=== PATIENT | male | born 1945 | race Caucasian/White ===

== ENCOUNTER → 2016-11-23 08:52 | Outpatient (CLI) | payer MEDICARE, OTHER ==
[2016-01-01 09:27] VITALS: BMI 22.1
[~2016-11-23 08:52] MED LIST: ACETAMINOPHEN500 M1 PO; ASPIRIN81 MG PO; BUPROPION XL300 MG PO; EFFIENT10 MG PO; GLUCOTROL 5 MG T5 MG PO; HYTRIN5 MG PO; LOPRESSOR25 MG PO; NIFEDIPINE ER90 MG PO; PROAIR HFA8.5 GM INH; WELLBUTRIN XL150 M1 PO; XANAX0.25 MG PO; ZESTRIL40 MG PO; ZOCOR20 MG PO; ZOCOR80 MG PO
== END | disposition home or self-care (01) ==
LOC: D.CT 08:52
DX: M54.5 Low back pain (principal)

== ENCOUNTER 2016-12-10 19:22 | Emergency (ER) | payer MEDICARE, OTHER ==
[2016-01-01 09:27] VITALS: BMI 22.1
[2016-12-10 20:01] LABS: BASOPHILS 0.2 % (0.0-2.0); HEMATOCRIT 32.1 % (42.0-54.0); HEMOGLOBIN 10.1 g/dL (13.5-17.5); IMMATURE GRANULOCYTES 0.4 % (0-5); LYMPHOCYTES 10.3 % (15-50); MCH 27.2 pg (26.0-34.0); MCHC 31.5 g/dL (31.0-37.0); MCV 86.3 fL (80.0-100.0); MEAN PLATELET VOLUME 10.4 fL (7.4-10.4); MONOCYTES 7.9 % (2-11); NEUTROPHILS 80.2 % (40-80); PLATELET COUNT 197 10x3/uL (130-400); RBC 3.72 10x6/uL (4.20-6.10); RDW 15.5 % (11.5-14.5)
[2016-12-10 20:12] LABS: ALBUMIN 3.5 g/dL (3.4-5.0); ALKALINE PHOSPHATASE 75 U/L (46-116); ALT (SGPT) 42 U/L (10-68); BILIRUBIN - TOTAL 0.31 mg/dL (0.2-1.3); CALC OSMOLALITY 286 mosm/kg (275-300); CALCIUM 8.5 mg/dL (8.5-10.1); CARBON DIOXIDE 24.7 mmol/L (21.0-32.0); CHLORIDE - SERUM 104 mmol/L (98-107); CREATININE - SERUM 2.1 mg/dL (0.6-1.3); GLUCOSE 149 mg/dL (74-106); POTASSIUM - SERUM 4.1 mmol/L (3.5-5.1); PROTEIN - SERUM 6.8 g/dL (6.4-8.2); SODIUM 140 mmol/L (136-145); UREA NITROGEN 26 mg/dL (7-18); eGFR NON AFRICAN AMERICAN 33 mL/min (90-120)
[2016-12-10 20:24] LABS: CHOL - HDL RATIO 3.6 ratio (2.3-4.9); CHOLESTEROL, TOTAL 107 mg/dL (0-200); CKMB 0.8 U/L (0.0-3.6); CREATINE KINASE 183 UL (21-232); HDL CHOLESTEROL 30 mg/dL (32-96); LDL CHOLESTEROL 37 mg/dL (0-100); LDL-HDL RATIO 1.2 ratio (1.5-3.5); TRIGLYCERIDE 204 mg/dL (30-200); TROPONIN-I < 0.017 ng/mL (0.000-0.060)
== END 2016-12-10 21:42 | disposition home or self-care (01) ==
LOC: D.ER 19:22
PROVIDERS: Emergency Medicine
DX: R07.9 Chest pain, unspecified (principal); I25.10 Atherosclerotic heart disease of native coronary artery without angina pectoris; D64.9 Anemia, unspecified; N28.9 Disorder of kidney and ureter, unspecified; I45.10 Unspecified right bundle-branch block; I44.60 Unspecified fascicular block

== ENCOUNTER → 2017-02-21 08:25 | Outpatient (CLI) | payer MEDICARE, OTHER ==
[2016-01-01 09:27] VITALS: BMI 22.1
[2017-02-21 10:22] LABS: CREATININE - SERUM 1.5 mg/dL (0.6-1.3)
== END | disposition home or self-care (01) ==
LOC: D.US 08:25
PROVIDERS: Internal Medicine Nephrology
DX: I10 Essential (primary) hypertension (principal); E11.22 Type 2 diabetes mellitus with diabetic chronic kidney disease; D63.1 Anemia in chronic kidney disease; N28.1 Cyst of kidney, acquired

== ENCOUNTER → 2017-11-27 10:10 | Outpatient (CLI) | payer MEDICARE, OTHER ==
[2016-01-01 09:27] VITALS: BMI 22.1
[~2017-11-27 10:10] MED LIST changes: +BAYER CHEWABLE81 MG PO; +BUSPAR10 MG PO; +DESERYL100 MG PO; +FLOMAX0.4 MG PO; +GABAPENTIN100 MG PO; +LANOXIN125 MCG PO; +LIPITOR40 MG PO; +PLAVIX75 MG PO; +REQUIP0.5 MG PO; +ULTRAM50 MG PO
== END | disposition home or self-care (01) ==
LOC: D.CT 10:10
DX: R91.1 Solitary pulmonary nodule (principal)

== ENCOUNTER 2018-01-23 09:16 | Outpatient (CLI) | payer MEDICARE, OTHER ==
[~2018-01-23] VITALS: Ht 182.9 cm; Wt 63.6 kg
--- NOTE | ~2018-01-23 | OP ---
PATIENT NAME: RENARD CABRERA MEDICAL RECORD: [id number] :41 LOCATION:D.CAT ADMISSION DATE: SURGEON: DRISS ANDERSON MD DATE OF OPERATION: 01/23/2018 PROCEDURES: 1. PTCA stent LAD diagonal. 2. Left heart catheterization. 3. Selective coronary angiography. 4. Left ventriculogram. INDICATION: Angina and coronary artery disease. PROCEDURE IN DETAIL: After informed consent was obtained and after a detailed description of the risks, benefits as well as alternative therapies, the patient elected to proceed with angiogram and angioplasty. The right femoral area was prepped and draped in normal sterile fashion. Right femoral artery was cannulated via modified Seldinger technique with placement of 6-Honduran sheath. All catheters exchanged through this sheath. FINDINGS: The left ventriculogram was performed in standard 30-degree KABA view reveals preserved cardiac wall motion, ejection fraction estimated at 55% to 60%. SELECTIVE CORONARY ANGIOGRAPHY: 1. Left main has no significant angiographic disease. 2. Left anterior descending has previously placed stents. These are widely patent with no significant restenosis. However, there is an LAD diagonal that is relatively large, comes off in the stented area of 95% stenosis at the ostium. 3. Left circumflex has moderate irregularities, but no flowing stenosis. 4. The right coronary artery has multiple previously placed stents. These are widely patent with no significant restenosis. No disease else lyles throughout the RCA or its branches. PTCA STENT OF THE LAD DIAGONAL: The stent used was a 2.0 x 12 mm Lorenzo. Result was 0% residual stenosis. OVERALL IMPRESSION: Successful percutaneous transluminal coronary angioplasty stent of the left anterior descending diagonal going from 95% initial stenosis to 0% residual stenosis. TRANSINT:[id number] Voice Confirmation ID: [id number] DOCUMENT ID: [id number] DRISS ANDERSON MD at 1218 CC: [id number] DICTATION DATE: 01/23/18 1241 DEMAND EQUIPMENT REPAIRER: 01/23/18 1438 DEP CLI 01/23/18 [facility] [address] [place] [address]
--- NOTE | ~2018-01-23 | HEMODYNAMI ---
PATIENT:RENARD CABRERA MEDICAL RECORD: [id number] : 41 LOCATION:DVerónicaCAT ADMISSION DATE: 01/23/18 Generatedon:01/23/201812:43 Patient name: RENARD CABRERA Patient #: [id number] SSN: DO B: 1945 Date of study: 01/23/2018 Page: Of Hemodynamic Procedure Report Patient Data Patient Demographics Procedure consent was obtained First Name: RENARD Gender: Male Last Name: RICK : 1945 [facility] Initial: C Age: 72 year(s) Patient #: [id number] Race: Unknown Additional ID: [id number] Contact details [address]: [address] [place] [address] State: [place] City: [place] Zip code: [address] Past Medical History Allergies: No known allergies Admission Admission Data Admission Date: 01/23/2018 Admission Time: 9:16 Admit Source: Other Lab Results Lab Result Date: 01/23/2018 Lab Result Time: 10:30 Biochemistry Name Units Result Min Max BUN mg/dl 18 --(---*)-- 7 18 Creatinine mg/dl 1 --(--*-)-- 0.6 1.3 CBC Name Units Result Min Max Hematocrit % 37.7 *-(----)-- 42 54 Hemoglobin g/dl 12.7 -*(----)-- 13.5 17.5 Procedure Procedure Types Cath Procedure Diagnostic Procedure C [facility] w/Coronaries PCI Procedure Coronary Stent Coronary Stent Initial Procedure Description Procedure Date Procedure Date: 01/23/2018 Procedure Start Time: 12:25 Procedure End Time: 12:42 Procedure Staff Name Function Dawson Vann MD Performing Physician Nathaniel Parker RT Monitor Elizabet Frederick RT Scrub Rakesh Yanes RN Nurse Procedure Data Cath Procedure Fluoroscopy Diagnostic fluoroscopy Total fluoroscopy Time: 3.2 time: 3.2 min min Diagnostic fluoroscopy Total fluoroscopy dose: 321 dose: 321 mGy mGy Contrast Material Contrast Material Type Amount (ml) Isovue 300 80 Entry Location Entry Primary Successful Side Size Upsize Upsize Entry Closure Succes sful Closure Location (Fr) 1 (Fr) 2 (Fr) Remarks Device Remarks Femoral Right 5 Fr 6 Fr Exoseal artery Short Estimated blood loss: 10 ml Diagnostic catheters Device Type Used For End Catheter Placement MULTIPACK Pigtail 5 Fr Procedure catheter MULTIPACK JL 4.0 5Fr Procedure catheter MULTIPACK 3DRC 5Fr Procedure catheter Procedure Complications No complications Procedure Medications Medication Administration Route Dosage 0.9% NaCl I.V. 100 ml/hr Oxygen etCO2 Nasal cannula 2 l/min Heparin Flush Bag added to field 2 bags (1000units/500ml NS) Lidocaine 2% added to field 20 Versed I.V. 1 mg Fentanyl I.V. 50 mcg Versed I.V. 1 mg Fentanyl I.V. 50 mcg Versed I.V. 2 mg Heparin Bolus I.V. 4000 units Hemodynamics Rest HGB: 12.7 (g/dl) Heart Rate: 78 (bpm) Snapshots Pre Cath Intra NCS Post Cath Vital Signs Time Heart Resp SPO2 etCO2 NIBP (mmHg) Rhythm Pain Sedation Rate (ipm) (%) (mmHg) Status Level (bpm) 12:14:13 79 19 98 0 166/73(116) NSR 0 (11) 10(A) , No pain 12:18:52 78 15 99 22.5 135/66(97) NSR 0 (11) 10(A) , No pain 12:23:26 81 18 94 0 130/69(85) NSR 0 (11) 10(A) , No pain 12:28:03 78 20 99 26.3 130/60(89) NSR 0 (11) 10(A) , No pain 12:32:37 86 19 91 0 127/65(82) NSR 0 (11) 9(A) , No pain 12:37:14 82 19 95 3 127/61(88) NSR 0 (11) 9(A) , No pain 12:41:48 90 7 97 24.7 115/61(79) NSR 0 (11) 9(A) , No pain Medications Time Medication Route Dose Verified Delivered Reason Notes Effectiveness by by 12:19:16 0.9% NaCl I.V. 100 Rakesh Rakesh Per physician ml/hr Joaquín Yanes RN RN 12:19:26 Oxygen etCO2 2 Rakesh Rakesh Per physician Nasal l/min Joaquín Yanes cannula RN RN 12:19:38 Heparin Flush added 2 Rakesh Rakesh used for Bag to bags Lortommie Yanes procedure (1000units/500ml field RN RN NS) 12:19:48 Lidocaine 2% added 20ml Rakesh Rakesh for local to vial Lortommie Yanes anesthetic field RN RN 12:24:30 Versed I.V. 1 mg Rakesh Rakesh for sedation Joaquín Yanes RN RN 12:24:41 Fentanyl I.V. 50 Rakesh Rakesh for sedation mcg Joaquín Yanes RN RN 12:26:21 Versed I.V. 1 mg Rakesh Rakesh for sedation Joaquín Yanes RN RN 12:26:26 Fentanyl I.V. 50 Rakesh Rakesh for sedation mcg Joaquín Yanes RN RN 12:30:28 Versed I.V. 2 mg Rakesh Rakesh for sedation Joaquín Yanes RN RN 12:30:39 Heparin Bolus I.V. 4000 Rakesh Rakesh for units Joaquín Yanes anticoagulation RN certification technician Log Time Note 11:57:11 Informed consent obtained and on chart 11:57:25 Admit Source: Other 11:57:39 Diagnostic Cath status Elective 11:57:40 Time tracking: Regular hours (M-F 7:00 - 5:00) 11:57:43 Plan of Care:Hemodynamics will remain stable., Cardiac rhythm will remain stable., Comfort level will be maintained., Respiratory function will remain adequate., Patient/ family verbilizes understanding of procedure., Procedure tolerated without complication., Recovers from procedure without complications.. 11:57:57 H&P Date Dictated: 01/11/2018 Within 30 days and on chart., H&P Addendum completed by physician on day of procedure. (MUST COMPLETE FOR ALL OUTPATIENTS). 12:00:30 Lab Result : BUN 18 mg/dl 12:00:30 Lab Result : Creatinine 1 mg/dl 12:00:30 Lab Result : Hematocrit 37.7 % 12:00:30 Lab Result : Hemoglobin 12.7 g/dl 12:00:41 Lab results completed and on chart. 12:01:46 Rakesh Yanes RN sent for patient. Start room use. 12:08:20 Patient received from Pre/Post Procedure Room to CCL 1 Alert and oriented. Tansferred to table in Supine position. 12:08:21 Warm blankets applied, and zohaib hugger turned on for patient comfort. 12:08:21 Correct patient and procedure confirmed by team. 12:08:22 ECG and BP/O2 sat monitors applied to patient. 12:13:18 Vital chart was started 12:13:19 Full Disclosure recording started 12:19:16 0.9% NaCl 100 ml/hr I.V. was administered by Rakesh Yanes RN; Per physician; 12:19:26 Oxygen 2 l/min etCO2 Nasal cannula was administered by Rakesh Yanes RN; Per physician; 12:19:38 Heparin Flush Bag (1000units/500ml NS) 2 bags added to field was administered by Rakesh Yanes RN; used for procedure; 12:19:48 Lidocaine 2% 20ml vial added to field was administered by Rakesh Yanes RN; for local anesthetic; 12:20:26 SHEATH Prelude 6Fr 0.035 (HBI-3M-47-035) opened to sterile field. 12:20:40 Baseline sample Acquired. 12:20:44 Rhythm: sinus rhythm 12:20:45 Pre-procedure instructions explained to patient. 12:20:45 Pre-op teaching completed and patient verbalized understanding. 12:20:47 Family in waiting room. 12:20:48 Patient NPO since Midnight. 12:20:55 Patient allergic to No known allergies 12:20:57 Is the patient allergic to Iodine/contrast media? No. 12:20:58 Is patient on blood thinner?Yes 12:21:00 ACC The patient was administered the following blood thiners within the last 24 hours: ACCPlavix 12:21:01 Patient diabetic? Yes. 12:21:02 If diabetic: On Metformin? Yes 12:21:05 If on Metformin: Last Dose? 01/21/2018 12:21:08 Previous problem with sedation/anesthesia? No ? 12:21:10 Snore? Yes 12:21:11 Sleep apnea? Yes 12:21:12 Deviated septum? No 12:21:14 Opens mouth fully? Yes 12:21:14 Sticks out tongue? Yes 12:21:41 Airway obstruction? Yes scaring 12:21:44 Dentures? No ? 12:21:48 Pre procedure: right dorsailis pedis pulse 2+ Normal; easily identifiable; not easily obliterated 12:21:52 Patient pain scale 0/10 ?. 12:22:33 IV patent on arrival in left forearm with 0.9% NaCl at [facility]. 12:22:38 Right groin area was prepped with chlora-prep and draped in sterile fashion 12:22:39 Alarms reviewed by R. N. 12:22:40 Sharps counted by scrub and verified by R.N. 12:22:42 Use device set Femoral Dx 12:22:44 ACIST Syringe (07222) opened to sterile field. 12:22:44 Bag Decanter (2002S) opened to sterile field. 12:22:46 ACIST Hand Control (44231) opened to sterile field. 12:22:47 ACIST Manifold (49424) opened to sterile field. 12:22:48 Tegaderm 4 x 4 (1626W) opened to sterile field. 12:22:50 Medline Cath Pack ([id number]) opened to sterile field. 12:22:50 DIAGNOSTIC WIRE .035 260cm J wire (922809) opened to sterile field. 12:22:51 DIAGNOSTIC Multipack 5Fr catheter set (QD7147) opened to sterile field. 12:22:54 SHEATH Prelude 5Fr 0.035 (CSH-3Y-78-035) opened to sterile field. 12:23:01 Physician arrived 12:23:01 --------ALL STOP TIME OUT------ 12:23:01 Final Timeout: patient, procedure, and site verified with staff and physician. All members of the team are in agreement. 12:23:03 Right groin site verified by team. 12:23:05 Physical assessment completed. ASA score P 2 - A patient with mild systemic disease as per Dawson Vann MD. 12:23:09 Sedation plan: IV Moderate Sedation Medication:Versed, Fentanyl 12::57 Zero performed for pressure channel P1 12:24:03 Zero performed for pressure channel P1 12:24:07 Zero performed for pressure channel P1 12:24:13 Zero performed for pressure channel P1 12:24:30 Versed 1 mg I.V. was administered by Rakesh Yanes RN; for sedation; 12:24:41 Fentanyl 50 mcg I.V. was administered by Rakesh Yanes RN; for sedation; 12::42 Procedure started. 12::46 Local anesthetic to right femoral artery with Lidocaine 2% by Dawson Vann MD.INITIAL ACCESS ONLY 12:: A 5 Fr sheath was inserted into the Right Femoral artery 12:: A MULTIPACK Pigtail 5 Fr catheter was advanced over the wire and used for Procedure. 12:: LV gram done using KABA 12:: Versed 1 mg I.V. was administered by Rakesh Yanes RN; for sedation; Injector settings: Ml/sec: 10, Volume: 20, 12:: Fentanyl 50 mcg I.V. was administered by Rakesh Yanes RN; for sedation; 12:: EF : 50 % 12:: Catheter exchanged over wire. 12:: A MULTIPACK JL 4.0 5Fr catheter was advanced over the wire and used for Procedure. 12::29 LCA angiography performed. 12:: Catheter exchanged over wire. 12:: A MULTIPACK 3DRC 5Fr catheter was advanced over the wire and used for Procedure. 12:29: RCA angiography performed. 12:29:03 Catheter removed. 12:30:02 GUIDE 6FR XBLAD 3.5 catheter ([id number]) opened to sterile field. 12::28 Versed 2 mg I.V. was administered by Rakesh Yanes RN; for sedation; 12:30:29 Sheath upsized to a 6 Fr Short. 12:30:39 Heparin Bolus 4000 units I.V. was administered by Rakesh Yanes RN; for anticoagulation; 12:30:47 6 Fr xblad 3.5 guide catheter was inserted over the wire 12:30:48 INFLATOR Merit BasixCompak (JV1210) opened to sterile field. 12:31:17 CHOICE PT Extra Support 182cm wire ([id number]) opened to sterile field. 12:32:44 choice wire advanced. 12:33:47 Wire advanced across lesion. 12:34:01 Inflate balloon Inflation number: 1 A EUPHORA 2.0 x 12 Balloon ([id number]) was prepped and advanced across the 1st Diag, then inflated to 15 BRONSON for 0:10 (min:sec). 12:34:19 Balloon removed over the wire. 12:35:50 Place stent Inflation Number: 2 A FIDENCIO RX 2.0 x 12 stent ([id number]) was prepped and advanced across the 1st Diag. The stent was deployed at 15 BRONSON for 0:10 (min:sec). 12:36:16 Balloon removed over the wire. 12:37:02 EXOSEAL 6Fr (EX600) opened to sterile field. 12:37:19 Wire removed. 12:37:20 Guide catheter removed. 12:37:28 Sheath removed intact; hemostasis achieved with Exoseal to the Right Femoral artery. 12:37:30 Procedure ended.(Physican Out) 12:39:22 Fluoroscopy time 03.20 minutes. 12:39:30 Fluoroscopy dose: 321 mGy 12:39:30 Flurop Dose total: 321 12:41:24 Contrast amount:Isovue 300 80ml. 12:41:26 Sharps counted by scrub and verified by R.N. 12:41:27 Insertion/operative site no bleeding no hematoma. 12:41:30 Post-op/insertion site Right Femoral artery dressed using a 4 x 4 and Tegaderm. 12:41:34 Post right femoral artery:stable, soft 12:41:36 Post Procedure Pulses reassessed and unchanged 12:41:38 Post-procedure physical assessment completed. ASA score P 2 - A patient with mild systemic disease as per Dawson Vann MD. 12:41:41 Post procedure rhythm: unchanged. 12:41:43 Estimated blood loss: 10 ml 12:41:48 Post procedure instruction explained to patient.Patient verbalizes understanding. 12:41:49 Patient needs reinforcement of post procedure teaching. 12:41:59 Procedure type changed to Cath procedure, Diagnostic procedure, LHC, LHC w/Coronaries, PCI procedure, Coronary Stent, Coronary Stent Initial 12:42:45 Procedure and supply charges have been captured, reviewed, submitted and are correct. 12:42:46 Vital chart was stopped 12:42:48 Procedure Complication : No complications 12:42:50 See physician's report for complete and final results. 12:42:51 Report given to Pre/Post Procedure Room. 12:42:53 Patient transfered to Pre/Post Procedure Room with Stretcher. 12:42:55 Procedure ended. 12:42:55 Full Disclosure recording stopped 12:43:10 End room use (Document Last) Intervention Summary Intervention Notes Time ActionType Lesion and Equipment Used Action# Pressure Duration Attributes 12:34:01 Inflate 1st Diag EUPHORA 2.0 x 1 15 00:10 balloon 12 Balloon ([id number]) 12:35:50 Place stent 1st Diag FIDENCIO RX 2.0 x 2 15 00:10 12 stent ([id number]) Device Usage Item Name Manufacture Quantity Catalog Number Hospital Part Current Minimal Lot# / Charge Number Stock Stock Serial# Code ACIST Syringe Acist 1 62221 571391 477126 [id number] 20 (38995) Medical Systems Virtuix Bag Decanter Microtek 1 2001S 553547 49684 913770 5 (2001S) Medical Inc. ACIST Hand Acist 1 10463 233745 850783 747948 5 Control (29173) Medical Systems Inc ACIST Manifold Acist 1 07174 093628 235005 924042 5 (67320) Medical Systems Inc Tegaderm 4 x 4 3M 1 1626W 128309 320014 202014 5 (1626W) Medline Cath Cardinal 1 [id number] 084282 16001 915117 5 Pack Health ([id number]) DIAGNOSTIC WIRE [facility] 1 191260 070948 790903 734388 30 .035 260cm J wire (795242) DIAGNOSTIC Cardinal 1 GG4960 471399 63698 530581 30 Multipack 5Fr Health catheter set (PT5314) SHEATH Prelude Merit 1 KUM-2H-64-035 815645 488397 075896 5 5Fr 0.035 Medical (VFL-5I-41-035) MULTIPACK Cardinal 1 861600 5 Pigtail 5 Fr Health catheter MULTIPACK JL Cardinal 1 055986 5 4.0 5Fr Health catheter MULTIPACK 3DRC Cardinal 1 890732 5 5Fr catheter Health GUIDE 6FR XBLAD Cardinal 1 [id number] 626571 804564 687595 10 3.5 catheter Health ([id number]) CHOICE PT Extra Labadie 1 [id number] 789214 085468 415078 5 Support 182cm Scientific wire ([id number]) SHEATH Prelude Merit 1 CKM-8C-76-35 223523 0483000 357126 5 6Fr 0.035 Medical (UOV-8V-77-035) EUPHORA 2.0 x Medtronic 1 [id number] 142509 421441 109807 5 [id number] 12 Balloon ([id number]) FIDENCIO RX 2.0 x Medtronic 1 [id number] 011360 9699939 464298 5 [id number] 12 stent ([id number]) INFLATOR Merit Merit 1 BU2310 332887 089191 885195 15 [facility] ([id number]) EXOSEAL 6Fr Cardinal 1 EX600 103943 040167 271474 10 (EX600) Health Signature Audit Dexter Stage Time Signature Unsigned Intra-Procedure 01/23/2018 Nathaniel Parker 12:43:37 PM RT(R) Signatures Monitor : Nathaniel Parker RT Signature : Date : Time : [place] [address] [facility] [place] [address]
[~2018-01-23 09:16] MED LIST changes: -BAYER CHEWABLE81 MG PO; -BUSPAR10 MG PO; -DESERYL100 MG PO; -FLOMAX0.4 MG PO; -GABAPENTIN100 MG PO; -LANOXIN125 MCG PO; -LIPITOR40 MG PO; -PLAVIX75 MG PO; -REQUIP0.5 MG PO; -ULTRAM50 MG PO
[2018-01-23] MEDS ORDERED: LANOXIN125 MCG PO (10:23)
[2018-01-23] MEDS ORDERED: DESERYL100 MG PO (10:23)
[2018-01-23] MEDS ORDERED: LIPITOR40 MG PO (10:23)
[2018-01-23] MEDS ORDERED: PLAVIX75 MG PO (10:23)
[2018-01-23] MEDS ORDERED: REQUIP0.5 MG PO (10:25)
[2018-01-23 10:31] VITALS: BP 206/77; Ht 182.9 cm; Wt 63.6 kg
[2018-01-23 10:54] LABS: HEMATOCRIT 37.7 % (42.0-54.0); HEMOGLOBIN 12.7 g/dL (13.5-17.5); LYMPHOCYTES 18.6 % (15-50); MCH 28.2 pg (26.0-34.0); MCHC 33.7 g/dL (31.0-37.0); MCV 83.6 fL (80.0-100.0); MEAN PLATELET VOLUME 9.5 fL (7.4-10.4); NEUTROPHILS 72.5 % (40-80); PLATELET COUNT 197 10x3/uL (130-400); RBC 4.51 10x6/uL (4.20-6.10)
[2018-01-23] MEDS ORDERED: FLOMAX0.4 MG PO (11:02)
[2018-01-23] MEDS ORDERED: GABAPENTIN100 MG PO (11:03)
[2018-01-23] MEDS ORDERED: BUSPAR10 MG PO (11:03)
[2018-01-23] MEDS ORDERED: ULTRAM50 MG PO (11:04)
[2018-01-23 11:19] LABS: CALC OSMOLALITY 283 mosm/kg (275-300); CALCIUM 9.4 mg/dL (8.5-10.1); CARBON DIOXIDE 24.8 mmol/L (21.0-32.0); CHLORIDE - SERUM 105 mmol/L (98-107); GLUCOSE 159 mg/dL (74-106); POTASSIUM - SERUM 4.3 mmol/L (3.5-5.1); SODIUM 140 mmol/L (136-145); UREA NITROGEN 18 mg/dL (7-18); eGFR NON AFRICAN AMERICAN 78 mL/min (90-120)
[2018-01-23] MEDS ORDERED: BAYER CHEWABLE81 MG PO (12:57)
== END 2018-01-23 17:08 ==
LOC: D.CATH 09:16
PROVIDERS: Internal Medicine Interventional Cardiology
DX: I25.119 Atherosclerotic heart disease of native coronary artery with unspecified angina pectoris (principal); Z95.5 Presence of coronary angioplasty implant and graft; Z01.812 Encounter for preprocedural laboratory examination
CPT/HCPCS: 93458; C9600

== ENCOUNTER → 2018-05-31 09:04 | Outpatient (CLI) | payer MEDICARE, OTHER ==
[2018-01-23 10:31] VITALS: BMI 19.0
[~2018-05-31 09:04] MED LIST changes: +BAYER CHEWABLE81 MG PO; +BUSPAR10 MG PO; +DESERYL100 MG PO; +FLOMAX0.4 MG PO; +GABAPENTIN100 MG PO; +LANOXIN125 MCG PO; +LIPITOR40 MG PO; +PLAVIX75 MG PO; +REQUIP0.5 MG PO; +ULTRAM50 MG PO
== END | disposition home or self-care (01) ==
LOC: D.CT 09:04
DX: R91.1 Solitary pulmonary nodule (principal)

== ENCOUNTER → 2018-08-06 09:38 | Outpatient (CLI) | payer MEDICARE, OTHER ==
[2018-01-23 10:31] VITALS: BMI 19.0
== END | disposition home or self-care (01) ==
LOC: D.CT 09:38
DX: R91.8 Other nonspecific abnormal finding of lung field (principal)

== ENCOUNTER 2018-09-18 07:47 | Outpatient (CLI) | payer MEDICARE, BC ==
[~2018-09-18] VITALS: Ht 182.9 cm; Wt 68.2 kg
--- NOTE | ~2018-09-18 | HEMODYNAMI ---
PATIENT:RENARD CABRERA MEDICAL RECORD: [id number] : 41 LOCATION:[facility] ADMISSION DATE: 09/18/18 Generatedon:09/18/201810:16 Patient name: RENARD CABRERA Patient #: [id number] SSN: DO B: 1945 Date of study: 09/18/2018 Page: Of Hemodynamic Procedure Report Patient Data Patient Demographics Procedure consent was obtained First Name: RENARD Gender: Male Last Name: RICK : 1945 [facility] Initial: C Age: 73 year(s) Patient #: [id number] Race: Unknown Additional ID: [id number] Contact details Address: [address] [place] [address] State: [place] City: [place] Zip code: [address] Past Medical History Allergies: No known allergies Admission Admission Data Admission Date: 09/18/2018 Admission Time: 7:47 Lab Results Lab Result Date: 09/18/2018 Lab Result Time: 0:00 Biochemistry Name Units Result Min Max BUN mg/dl 20 --(----)*- 7 18 Creatinine mg/dl 1.5 --(----)-* 0.6 1.3 CBC Name Units Result Min Max Hemoglobin g/dl 12.8 -*(----)-- 13.5 17.5 Procedure Procedure Types Cath Procedure Diagnostic Procedure LHC [facility] w/Coronaries FFR/IVUS Intra-Coronary IVUS Initial Sedation Charges Moderate Sedation up to 15 minutes PCI Procedure PTCA PTCA Initial Procedure Description Procedure Date Procedure Date: 09/18/2018 Procedure Start Time: 9:54 Procedure End Time: 10:13 Procedure Staff Name Function Dawson Vann MD Performing Physician Rakesh Yanes RN Nurse Kathy Espinoza RT Scrub Deanna Powell RT Monitor Procedure Data Cath Procedure Fluoroscopy Diagnostic fluoroscopy Total fluoroscopy Time: 4 time: 4 min min Diagnostic fluoroscopy Total fluoroscopy dose: 443 dose: 443 mGy mGy Contrast Material Contrast Material Type Amount (ml) Isovue 300 87 Entry Location Entry Primary Successful Side Size Upsize Upsize Entry Closure Succes sful Closure Location (Fr) 1 (Fr) 2 (Fr) Remarks Device Remarks Femoral Right 5 Fr 6 Fr Exoseal artery Short Estimated blood loss: 5 ml Diagnostic catheters Device Type Used For End Catheter Placement MULTIPACK Pigtail 5 Fr LV Angiography catheter MULTIPACK JL 4.0 5Fr Left Coronary catheter Angiography MULTIPACK 3DRC 5Fr Right Coronary catheter Angiography Procedure Complications No complications Procedure Medications Medication Administration Route Dosage 0.9% NaCl I.V. 100 ml/hr Oxygen etCO2 Nasal cannula 2 l/min Heparin Flush Bag added to field 2 bags (1000units/500ml NS) Lidocaine 2% added to field 20 Versed I.V. 2 mg Fentanyl I.V. 100 mcg Versed I.V. 2 mg Fentanyl I.V. 100 mcg Heparin Bolus I.V. 4000 units Hemodynamics Rest HGB: 12.8 (g/dl) Heart Rate: 99 (bpm) Pressure Samples Time Site Value (mmHg) Purpose Heart Use Rate(bpm) 9:58 LV 86/6,24 Snapshot 97 Snapshots Pre Cath Intra NCS Post Cath Vital Signs Time Heart Resp SPO2 etCO2 NIBP (mmHg) Rhythm Pain Sedation Rate (ipm) (%) (mmHg) Status Level (bpm) 9:21:05 101 19 97 0 148/72(105) NSR 0 (11) 10(A) , No pain 9:25:22 99 12 98 0 141/72(96) NSR 0 (11) 10(A) , No pain 9:29:37 94 12 97 9.8 132/68(92) NSR 0 (11) 10(A) , No pain 9:33:49 98 17 98 25 127/69(99) NSR 0 (11) 10(A) , No pain 9:38:00 101 18 98 23.5 135/73(102) NSR 0 (11) 10(A) , No pain 9:42:14 98 12 97 28.8 133/69(95) NSR 0 (11) 10(A) , No pain 9:46:25 95 12 97 28.8 122/72(99) NSR 0 (11) 10(A) , No pain 9:50:31 98 18 98 25.8 117/71(84) NSR 0 (11) 10(A) , No pain 9:54:39 101 10 98 26.6 135/70(95) NSR 0 (11) 10(A) , No pain 9:58:51 96 11 97 29.6 114/71(90) NSR 0 (11) 9(A) , No pain 10:02:57 93 11 91 31.9 131/72(104) NSR 0 (11) 9(A) , No pain 10:07:08 93 10 92 21.2 133/71(95) NSR 0 (11) 10(A) , No pain 10:11:21 150 19 97 22 119/67(93) NSR 0 (11) 10(A) , No pain Medications Time Medication Route Dose Verified Delivered Reason Notes Effectiveness by by 9:38:42 0.9% NaCl I.V. 100 Rakesh Rakesh Per physician ml/hr Joaquín Yanes RN RN 9:38:51 Oxygen etCO2 2 Rakesh Rakesh Per physician Nasal l/min Joaquín Ynaes cannula RN RN 9:39:02 Heparin Flush added 2 Rakesh Rakesh used for Bag to bags Lortommie Yanes procedure (1000units/500ml RN RN NS) 9:39:15 Lidocaine 2% added 20ml Rakesh Rakesh for local to vial Joaquín Yanes anesthetic field RUGGIERO RN 9:51:09 Versed I.V. 2 mg Rakesh Rakesh for sedation Joaquín Yanes RN RN 9:51:18 Fentanyl I.V. 100 Rakesh Rakesh for sedation willard Yanes RN RN 9:55:32 Versed I.V. 2 mg Rakesh Rakesh for sedation Joaquín Yanes RN RN 9:55:41 Fentanyl I.V. 100 Rakesh Rakesh for sedation mcg Joaquín Yanes RN RN 10:07:15 Heparin Bolus I.V. 4000 Rakesh Rakesh for units Joaquín Yanes anticoagulation RN pathology tech Log Time Note 9:08:32 Kana LIU(R) sent for patient. Start room use. 9:08:33 Time tracking: Regular hours (M-F 7:00 - 5:00) 9:08:39 Plan of Care:Hemodynamics will remain stable., Cardiac rhythm will remain stable., Comfort level will be maintained., Respiratory function will remain adequate., Patient/ family verbilizes understanding of procedure., Procedure tolerated without complication., Recovers from procedure without complications.. 9:19:46 Lab Result : Hemoglobin 12.8 g/dl ::46 Lab Result : Creatinine 1.5 mg/dl ::46 Lab Result : BUN 20 mg/dl 9::52 Patient received from Pre/Post Procedure Room to CCL 2 Alert and oriented. Tansferred to table in Supine position. 9:19:54 Warm blankets applied, and zohaib hugger turned on for patient comfort. 9:19:54 Correct patient and procedure confirmed by team. 9:19:55 Signed procedure consent form obtained from patient. 9:19:57 ECG and BP/O2 sat monitors applied to patient. 9:19:58 Vital chart was started 9:20:03 Baseline sample Acquired. 9:20:08 Rhythm: sinus rhythm 9:20:10 Full Disclosure recording started 9:20:13 H&P Date Dictated: 09/18/2018 Within 30 days and on chart., H&P Addendum completed by physician on day of procedure. (MUST COMPLETE FOR ALL OUTPATIENTS). 9:20:15 Pre-procedure instructions explained to patient. 9:20:15 Pre-op teaching completed and patient verbalized understanding. 9:20:17 Family in waiting room. 9:20:18 Patient NPO since Midnight. 9:20:27 Is the patient allergic to Iodine/contrast media? No. 9:20:28 Was the patient premedicated? No 9:31:30 Is patient on blood thinner?Yes 9:31:33 ACC The patient was administered the following blood thiners within the last 24 hours: ACCPlavix 9:31:35 Patient diabetic? Yes. 9:31:36 If diabetic: On Metformin? Yes 9:31:52 If on Metformin: Last Dose? 09/17/2018 9:32:00 Previous problem with sedation/anesthesia? No ? 9:32:20 Snore? Yes 9:32:22 Sleep apnea? Yes 9:32:29 Deviated septum? No 9:32:30 Opens mouth fully? Yes 9:32:31 Sticks out tongue? Yes 9:32:38 Airway obstruction? Yes asbestosis 9:32:43 Dentures? No ? 9:32:46 Pre procedure: right dorsailis pedis pulse 2+ Normal; easily identifiable; not easily obliterated 9:32:49 Pre procedure: left dorsailis pedis pulse 2+ Normal; easily identifiable; not easily obliterated 9:33:00 Patient pain scale 0/10 ?. 9:33:18 IV patent on arrival in right antecubital with 0.9% NaCl at KVO. 9:33:20 Lab results completed and on chart. 9:33:32 Right groin area was prepped with chlora-prep and draped in sterile fashion 9:33:33 Alarms reviewed by R. N. 9:33:33 Sharps counted by scrub and verified by R.N. 9:38:42 0.9% NaCl 100 ml/hr I.V. was administered by Rakesh Yanes RN; Per physician; 9:38:51 Oxygen 2 l/min etCO2 Nasal cannula was administered by Rakesh Yanes RN; Per physician; 9:39:02 Heparin Flush Bag (1000units/500ml NS) 2 bags added to field was administered by Rakesh Yanes RN; used for procedure; 9:39:15 Lidocaine 2% 20ml vial added to field was administered by Rakesh Yanes RN; for local anesthetic; 9:49:31 Physician arrived 9:49:32 --------ALL STOP TIME OUT------ 9:49:33 Final Timeout: patient, procedure, and site verified with staff and physician. All members of the team are in agreement. 9:49:35 Right groin site verified by team. 9:49:38 Physical assessment completed. ASA score P 2 - A patient with mild systemic disease as per Dawson Vann MD. 9:49:41 Sedation plan: IV Moderate Sedation Medication:Versed, Fentanyl 9:49:48 Use device set Femoral Dx 9:49:49 ACIST Syringe (93235) opened to sterile field. 9:49:50 Bag Decanter (2002) opened to sterile field. 9:49:50 Medline Cath Pack ([id number]) opened to sterile field. 9:49:51 DIAGNOSTIC WIRE .035 260cm J wire (747357) opened to sterile field. 9:49:52 ACIST Hand Control (93932) opened to sterile field. 9:49:53 ACIST Manifold (91331) opened to sterile field. 9:49:53 DIAGNOSTIC Multipack 5Fr catheter set ([id number]) opened to sterile field. 9:49:54 Tegaderm 4 x 4 (1626W) opened to sterile field. 9:49:55 SHEATH 5FR Mckinney (GAJ190) opened to sterile field. 9:51:09 Versed 2 mg I.V. was administered by Rakesh Yanes RN; for sedation; 9:51:18 Fentanyl 100 mcg I.V. was administered by Rakesh Yanes RN; for sedation; 9:53:15 Baseline sample Acquired. 9:54:45 Procedure started. 9:54:50 Local anesthetic to right femoral artery with Lidocaine 2% by Dawson Vann MD.INITIAL ACCESS ONLY 9:55:32 Versed 2 mg I.V. was administered by Rakesh Yanes RN; for sedation; 9:55:41 Fentanyl 100 mcg I.V. was administered by Rakesh Yanes RN; for sedation; 9:57:11 A 5 Fr sheath was inserted into the Right Femoral artery 9:57:57 A MULTIPACK Pigtail 5 Fr catheter was advanced over the wire and used for LV Angiography. 9:58:44 LV hemodynamics recorded. 9:58:45 LV gram done using KABA 9:58:48 Injector settings: Ml/sec: 5, Volume: 15, 9:58:54 EF : 40 % 9:59:06 Catheter removed. 9:59:12 A MULTIPACK JL 4.0 5Fr catheter was advanced over the wire and used for Left Coronary Angiography. 9:59:41 LCA angiography performed. 9:59:45 Injector settings: Ml/sec: 3, Volume: 6, 10:01:01 Catheter removed. 10:01:13 A MULTIPACK 3DRC 5Fr catheter was advanced over the wire and used for Right Coronary Angiography. 10:01:43 RCA angiography performed. 10:01:45 Injector settings: Ml/sec: 3, Volume: 6, 10:02:03 Catheter removed. 10:02:21 CHOICE PT Extra Support 182cm wire ([id number]) opened to sterile field. 10:02:22 INFLATOR Merit BasixCompak (ZV7768) opened to sterile field. 10:02:23 SHEATH 6FR Mckinney (CFM042) opened to sterile field. 10:03:24 [place] Nightmute Eagleye IVUS Catheter (62227Y) opened to sterile field. 10:04:19 GUIDE 6FR AR 1.0 catheter (TZ5TQ51) opened to sterile field. 10:04:28 Proceeding to intervention. 10:04:35 Sheath upsized to a 6 Fr Short. 10:04:42 6 Fr ar 1 guide catheter was inserted over the wire 10:04:48 choice pt wire advanced. 10:04:50 Wire advanced across lesion. 10:04:56 IVUS catheter advanced over wire. 10:07:15 Heparin Bolus 4000 units I.V. was administered by Rakesh Yanes RN; for anticoagulation; 10:07:16 IVUS pass to RCA lesion performed. 10:07:17 IVUS catheter removed over wire. 10:07:40 Inflate balloon Inflation number: 1 A EUPHORA 4.0 x 20 Balloon ([id number]) was prepped and advanced across the Mid RCA, then inflated to 17 BRONSON for 0:10 (min:sec). 10:07:45 Inflation number: 2 The EUPHORA 4.0 x 20 Balloon ([id number]) was reinflated across the Mid RCA, to 19 BRONSON for 0:10 (min:sec). 10:08:01 Inflation number: 3 The EUPHORA 4.0 x 20 Balloon ([id number]) was reinflated across the Mid RCA, to 21 BRONSON for 0:10 (min:sec). 10:08:38 Balloon removed over the wire. 10:08:39 Wire removed. 10:08:44 Guide catheter removed. 10:08:53 EXOSEAL 6Fr (EX600) opened to sterile field. 10:09:13 Sheath removed intact; hemostasis achieved with Exoseal to the Right Femoral artery. 10:09:15 Procedure ended.(Physican Out) 10:09:39 Fluoroscopy time 04.00 minutes. 10:09:43 Fluoroscopy dose: 443 mGy 10:09:43 Flurop Dose total: 443 10:09:57 Contrast amount:Isovue 300 87ml. 10:09:58 Sharps counted by scrub and verified by R.N. 10:10:00 Insertion/operative site no bleeding no hematoma. 10:10:02 Post-op/insertion site Right Femoral artery dressed using a 4 x 4 and Tegaderm. 10:10:04 Post right femoral artery:stable 10:10:16 FEMSTOP Gold (E07434) opened to sterile field. 10:12:50 Femstop placed over the right femoral artery at 125 mmHg. Hemostasis achieved. 10:12:52 Post Procedure Pulses reassessed and unchanged 10:12:54 Post procedure rhythm: unchanged. 10:12:57 Estimated blood loss: 5 ml 10:12:58 Post procedure instruction explained to patient.Patient verbalizes understanding. 10:12:58 Patient needs reinforcement of post procedure teaching. 10:13:13 Procedure type changed to Cath procedure, Diagnostic procedure, LHC, LHC w/Coronaries, FFR/IVUS, Intra-Coronary IVUS Initial, Sedation Charges, Moderate Sedation up to 15 minutes, PCI procedure, PTCA, PTCA Initial 10:13:14 Procedure and supply charges have been captured, reviewed, submitted and are correct. 10:13:18 Procedure Complication : No complications 10:13:20 Vital chart was stopped 10:13:21 See physician's report for complete and final results. 10:13:23 Report given to Pre/Post Procedure Room. 10:13:25 Patient transfered to Pre/Post Procedure Room with Stretcher. 10:13:28 Procedure ended. 10:13:28 Full Disclosure recording stopped 10:13:35 ACC-PCI Only Patient was given prescriptions, or instructed by Dawson Vann MD to start/continue the following medications upon discharge: Plavix 10:13:37 End room use (Document Last) Intervention Summary Intervention Notes Time ActionType Lesion and Equipment Action# Pressure Duration Attributes Used 10:07:40 Inflate Mid RCA EUPHORA 1 17 00:10 balloon 4.0 x 20 Balloon ([id number]) 10:07:45 Reinflate Mid RCA EUPHORA 2 19 00:10 balloon 4.0 x 20 Balloon ([id number]) 10:08:01 Reinflate Mid RCA EUPHORA 3 21 00:10 balloon 4.0 x 20 Balloon ([id number]) Device Usage Item Name Manufacture Quantity Catalog Number Hospital Part Current Minim al Lot# / Charge Number Stock Stock Serial# Code ACIST Acist 1 94521 607989 431960 934471 20 Cytori Therapeutics (50292) [employer] Bag Microtek 1 2001S 147969 93665 142502 5 Twonq. (2001S) Medline Medline 1 [id number] 658748 21773 816761 5 Cath Pack ([id number]) DIAGNOSTIC [facility] 1 268640 928816 055519 256004 30 WIRE .035 260cm J wire (951133) ACIST Hand Acist 1 27982 608498 683267 735445 5 Control Medical (24772) Systems Inc ACIST Acist 1 27953 802478 658705 647925 5 Manifold Medical (87891) Systems Inc DIAGNOSTIC Cardinal 1 GQ6382 071181 41548 371418 30 Multipack Health 5Fr catheter set (OM0548) Tegaderm 4 3M 1 1626W 203289 873900 165793 5 x 4 (1626W) SHEATH 5FR Terumo 1 EDQ419 013610 099961 183967 5 Mckinney (CLJ473) MULTIPACK Cardinal 1 445846 5 Pigtail 5 Health Fr catheter MULTIPACK Cardinal 1 847503 5 JL 4.0 5Fr Health catheter MULTIPACK Cardinal 1 354668 5 3DRC 5Fr Health catheter CHOICE PT [place] 1 [id number] 464298 644399 072776 5 Extra Scientific Support 182cm wire ([id number]) INFLATOR Merit 1 DP0143 927191 629142 466511 15 Beeline Medical BasixCompak (KE9319) SHEATH 6FR Terumo 1 NJX951 940653 861622 090076 40 Mckinney (AJT386) Allenton Allenton 1 43607L 609746 660568 916453 8 Nightmute Eagleye IVUS Catheter (64055M) GUIDE 6FR Medtronic 1 [id number] 957326 17819 836454 1 AR 1.0 catheter (QI4FW48) EUPHORA 4.0 Medtronic 1 [id number] 678986 862354 339131 5 [id number] x 20 Balloon ([id number]) EXOSEAL 6Fr Cardinal 1 EX600 918649 761101 525629 10 (EX600) Health FEMSTOP [facility] 1 P27074 537154 078926 633914 5 Gold (G06362) Signature Audit [place] Stage Time Signature Unsigned Intra-Procedure 09/18/2018 Deanna Powell 10:16:17 AM RT(R) Signatures Monitor : Deanna Powell RT Signature : Date : Time : [place] [id number] [place] [address]
[2018-09-18 08:35] VITALS: BP 147/63; Ht 182.9 cm; Wt 68.2 kg
[2018-09-18] MEDS ORDERED: SYNTHROID25 MCG PO (08:45)
[2018-09-18] MEDS ORDERED: GLUCOPHAGE1000 MG PO (08:45)
[2018-09-18 09:00] LABS: ANION GAP 17.1 mmol/L (8-16); CALCIUM 9.6 mg/dL (8.5-10.1); CARBON DIOXIDE 23.7 mmol/L (21.0-32.0); CREATININE - SERUM 1.5 mg/dL (0.6-1.3); POTASSIUM - SERUM 3.8 mmol/L (3.5-5.1)
[2018-09-18 09:01] LABS: BASOPHILS 0.5 % (0-2); EOSINOPHILS 1.3 % (0-7); HEMATOCRIT 38.5 % (42.0-54.0); HEMOGLOBIN 12.8 g/dL (13.5-17.5); IMMATURE GRANULOCYTES 1.1 % (0-5); LYMPHOCYTES 25.2 % (15-50); MCH 29.3 pg (26.0-34.0); MCHC 33.2 g/dL (31.0-37.0); MCV 88.1 fL (80.0-100.0); MONOCYTES 9.1 % (2-11); NEUTROPHILS 62.8 % (40-80); RBC 4.37 10x6/uL (4.20-6.10); RDW 13.9 % (11.5-14.5); WBC 6.3 10x3/uL (4.8-10.8)
[2018-09-18 09:08] LABS: PLATELET COUNT 285 10x3/uL (130-400)
--- NOTE | 2018-09-18 10:40 | NUR ---
PT. WITH VERY RESLESS LEGS. SPOKE WITH dR. ANDERSON AND ORDERS RECEIVED FOR NORCO AND NEURONTIN. FEM STOP IN USE
--- NOTE | 2018-09-18 10:49 | NUR ---
PT. RESTLESS. CO PAIN 810 TO BACK AND LEGS. GIVEN NORCO AND NEURONTIN. VSS. HR 94. BP 138/70. 98% ON RA. RIGHT GROIN WITH FEM STOP IN PLACE. NO BLEEDING. 1+ PEDAL PULSES. FAMILY AT BS
--- NOTE | 2018-09-18 11:02 | NUR ---
PT. WANTING TO GET OOB. MULTIPLE ATTEMPTS AT EXPLAINING WHY HE IS TO REMAIN IN BED FOR 3 MORE HOURS. FAMILY AT BS. RIGHT FOOT INTACT. 1+ PEDAL PULSE. VSS. HR 93. BP 143/69
--- NOTE | 2018-09-18 11:46 | NUR ---
STILL CO PAIN TO RIGHT FOOT. CHRONIC IN NATURE. STATES HE IS READY TO GET THE HECK OUT OF HERE. WAITING ON DR. ANDERSON TO COME BY AN TALK WITH THE FAMILY. THE FEM STOP PRESSURE IS WEANED DOWN. NO BLEEDINGL OR HEMATOMA TO RIGHT GROIN. VSS. HR 93. O2 SAT 98%. BP 144/72. FAMILY AT BS. 2+ PEDAL PULSES
--- NOTE | 2018-09-18 12:17 | NUR ---
REQUIP 1MG PO GIVEN. FEM STOP REMOVED. NO BLEEDING OR HEMATOMA TO RIGHT FEMORAL SITE. PLACED 4X4 AND TRANSPARENT FILM OVER SITE. VSS. HR 81 NSR.BP 154/81. 02 SAT 98% ON 2LNC. 2+ PEDAL PULSES. SKIN PINK AND WARM.
--- NOTE | 2018-09-18 13:05 | NUR ---
PT RESTING. VOIDED 200 CLEAR YELLOW OUTPUT. VSS. RIGHT GROIN C/D/I. NO BLEEDING. NO HEMATOMA. 2+ PEDAL PULSE.
--- NOTE | 2018-09-18 13:29 | OP ---
PATIENT NAME: RENARD CABRERA MEDICAL RECORD: [id number] :41 LOCATION:D.CAT ADMISSION DATE: SURGEON: DRISS ANDERSON MD DATE OF OPERATION: 09/18/2018 PROCEDURES: 1. PTCA RCA. 2. Intravascular ultrasound. 3. Left heart catheterization. 4. Selective coronary angiography. 5. Left ventriculogram. INDICATION: Angina and coronary artery disease. DESCRIPTION OF PROCEDURE: After informed consent was obtained and after detailed description of risks, benefits as well as alternative therapies, the patient elected to proceed with angiogram and angioplasty. The right femoral area was prepped and draped in normal sterile fashion. Right femoral artery was cannulated via modified Seldinger technique with placement of 6-Citizen Of [place] sheath. All catheters exchanged through this sheath. FINDINGS: Left ventriculogram was performed in standard 30-degree KABA view reveals global hypokinesis throughout all segments. Overall ejection fraction is 40%. SELECTIVE CORONARY ANGIOGRAPHY: 1. Left main is with no significant angiographic disease. 2. Left anterior descending has multiple previously placed stents that are widely patent with no significant restenosis. No disease elsewise at the LAD or its branches. 3. Left circumflex has mild irregularities, but no flow-limiting stenosis. 4. The right coronary has multiple previously placed stents. Intravascular ultrasound reveals there is 80% in-stent restenosis in the mid vessel. PTCA OF THE RCA: There already appeared to be 2 stents in this area, hence, we used high pressure balloon dilatation with a 4.0 balloon to 21 atmospheres. Result was 0% residual stenosis. OVERALL IMPRESSION: Successful high-pressure percutaneous transluminal coronary angioplasty for in-stent restenosis of the right coronary artery going from 80% initial stenosis to 0% residual. TRANSINT:[id number] Voice Confirmation ID: [id number] DOCUMENT ID: [id number] DRISS ANDERSON MD at 1329 CC: [id number] DICTATION DATE: 09/18/18 1012 SHELF FILLER: 09/18/18 1031 [facility] [address] [place] [id number]
--- NOTE | 2018-09-18 13:40 | NUR ---
PT. FOUND SITTING UP IN BED AND REMOVING HIS MONITORS. HE IS PUTTING ON HIS CLOTHES. I REVIEWED WITH HIM THAT HE IS TO BE FLAT FOR ANOTHER 30 MINUTES. HE STATES HE IS LEAVING AND READY TO GO. I CALLED HIS FAMILY. RIGHT GROIN C/D/I. DISCHARGE INSTRUCTIONS REVIEWED WITH PATIENT.
--- NOTE | 2018-09-18 13:46 | NUR ---
PT. DISCHARGED IN WHEEL CHAIR. HOME WITH FAMILY
== END 2018-09-18 13:45 ==
LOC: D.CATH 07:47
PROVIDERS: Internal Medicine Interventional Cardiology
DX: I25.119 Atherosclerotic heart disease of native coronary artery with unspecified angina pectoris (principal); T82.855A Stenosis of coronary artery stent, initial encounter; Y83.8 Other surgical procedures as the cause of abnormal reaction of the patient, or of later complication, without mention of misadventure at the time of the procedure

== ENCOUNTER 2019-10-25 10:31 | Outpatient (CLI) | payer MEDICARE, BC ==
[~2019-10-25] VITALS: Ht 182.9 cm; Wt 65.9 kg
--- NOTE | ~2019-10-25 | HEMODYNAMI ---
PATIENT:RENARD CABRERA MEDICAL RECORD: [id number] : 41 LOCATION:[facility] ADMISSION DATE: 10/25/19 Generatedon:10/25/201914:28 Patient name: RENARD CABRERA Patient #: [id number] SSN: [id number] : 1945 Date of study: 10/25/2019 Page: Of Hemodynamic Procedure Report Patient Data Patient Demographics Procedure consent was obtained First Name: RENARD Gender: Male Last Name: RICK : 1945 [facility] Initial: C Age: 74 year(s) Patient #: [id number] Race: SSN: [id number] Additional ID: [id number] Contact details Address: [address] [place] [address] State: [place] City: [place] Zip code: [address] Past Medical History Allergies: No known allergies Admission Admission Data Admission Date: 10/25/2019 Admission Time: 10:31 Arrival Date: 10/25/2019 Arrival Time: 12:30 Admit Source: Other Insurance Payor: Medicare [facility] #: [id number] Height (in.): 28.35 BSA: 0.95 (m2) Height (cm.): 72 BMI: 126.87 (kg/m2) Weight (lbs.): 145 Weight (kg.): 65.77 Lab Results Lab Result Date: 10/25/2019 Lab Result Time: 0:00 Biochemistry Name Units Result Min Max BUN mg/dl 15 --(--*-)-- 7 18 Creatinine mg/dl 1.5 --(----)-* 0.6 1.3 eGFR ml/min 48 *-(----)-- 90 120 NONAFRICAN CBC Name Units Result Min Max Hemoglobin g/dl 10.6 *-(----)-- 13.5 17.5 Procedure Procedure Types Cath Procedure Diagnostic Procedure [facility] w/Coronaries FFR/IVUS FFR Initial Sedation Charges Moderate Sedation up to 30 minutes PCI Procedure Coronary Stent Coronary Stent Initial Procedure Description Procedure Date Procedure Date: 10/25/2019 Procedure Start Time: 13:57 Procedure End Time: 14:22 Procedure Staff Name Function Dawson Vann MD Performing Physician Deanna Powell RT Monitor Kathy Espinoza RT Scrub Lea Valladares RN Nurse Procedure Data Cath Procedure Fluoroscopy Diagnostic fluoroscopy Total fluoroscopy Time: 5.1 time: 5.1 min min Diagnostic fluoroscopy Total fluoroscopy dose: 511 dose: 511 mGy mGy Contrast Material Contrast Material Type Amount (ml) Isovue 300 50 Entry Location Entry Primary Successful Side Size Upsize Upsize Entry Closure Succes sful Closure Location (Fr) 1 (Fr) 2 (Fr) Remarks Device Remarks Femoral Right 5 Fr 6 Fr Exoseal artery Short Estimated blood loss: 5 ml Diagnostic catheters Device Type Used For End Catheter Placement MULTIPACK Pigtail 5 Fr LV Angiography catheter MULTIPACK JL 4.0 5Fr Left Coronary catheter Angiography MULTIPACK 3DRC 5Fr Right Coronary catheter Angiography Procedure Complications No complications Procedure Medications Medication Administration Route Dosage 0.9% NaCl I.V. 100 ml/hr Oxygen etCO2 Nasal cannula 2 l/min Lidocaine 2% added to field 20 Heparin Flush Bag added to field 2 bags (1000units/500ml NS) Versed I.V. 2 mg Fentanyl I.V. 50 mcg Fentanyl I.V. 50 mcg Heparin Bolus I.V. 4000 units Versed I.V. 2 mg Hemodynamics Rest BSA: 0.95 (m2) HGB: 10.6 (g/dl) O2 Consumption: Estimated: 113.27 (ml/min) O2 Co nsumption indexed: Estimated:119.23 (ml/min/m) Heart Rate: 82 (bpm) Snapshots Pre Cath Intra NCS Post Cath Vital Signs Time Heart Resp SPO2 etCO2 NIBP (mmHg) Rhythm Pain Sedation Rate (ipm) (%) (mmHg) Status Level (bpm) 13:32:34 104 11 100 23.7 182/97(148) NSR 0 (11) 10(A) , No pain 13:36:56 83 10 97 24 169/88(133) NSR 0 (11) 10(A) , No pain 13:41:16 84 12 100 26 172/87(128) NSR 0 (11) 10(A) , No pain 13:45:38 80 12 100 18.3 163/83(128) NSR 0 (11) 10(A) , No pain 13:49:58 77 12 100 19.9 159/77(124) NSR 0 (11) 10(A) , No pain 13:54:18 76 12 100 30.6 158/77(117) NSR 0 (11) 10(A) , No pain 13:58:37 83 12 99 19.9 152/82(109) NSR 0 (11) 10(A) , No pain 14:02:53 86 12 99 22.9 161/80(119) NSR 0 (11) 10(A) , No pain 14:07:11 86 12 99 25.2 155/71(110) NSR 0 (11) 9(A) , No pain 14:11:29 84 16 99 25.2 156/75(113) NSR 0 (11) 9(A) , No pain 14:15:45 87 12 99 28.2 157/81(121) NSR 0 (11) 10(A) , No pain 14:20:03 87 12 99 28.2 170/80(135) NSR 0 (11) 10(A) , No pain Medications Time Medication Route Dose Verified Delivered Reason Notes Effectiveness by by 13:31:34 0.9% NaCl I.V. 100 Dawson Lea used for ml/hr Soo Valladares national sales trainer 13:31:41 Oxygen etCO2 2 Dawson Lea used for Nasal l/min Soo Valladares procedure cannula RN 13:31:48 Lidocaine 2% added 20ml Dawson Dawson for local to vial Soo Vann MD anesthetic field 13:31:52 Heparin Flush added 2 Dawson Dawson used for Bag to bags Soo Vann MD procedure (1000units/500ml field NS) 13:51:49 Versed I.V. 2 mg Dawson Lea for sedation Soo Valladares RN 13:51:57 Fentanyl I.V. 50 Dawson Lea for sedation mcg Soo Valladares RN 13:57:49 Fentanyl I.V. 50 Dawson Lea for sedation mcg Soo Valladares RN 13:57:55 Versed I.V. 2 mg Dawson Lea for sedation Soo Valladares RN 14:06:05 Heparin Bolus I.V. 4000 Dawson Tate for verif ied units Soo Valladares anticoagulation with Dr. BAHMAN Vann Procedure Log Time Note 13:: Diagnostic Cath Status : Elective 13:: Lab Result : eGFR NONAFRICAN 48 ml/min 13:: Lab Result : Creatinine 1.5 mg/dl 13:: Lab Result : BUN 15 mg/dl 13: Lab Result : Hemoglobin 10.6 g/dl 13:: Lea Valladares RN sent for patient. Start room use. 13:: Time tracking: Regular hours (M-F 7:00 - 5:00) 13::33 Plan of Care:Hemodynamics will remain stable., Cardiac rhythm will remain stable., Comfort level will be maintained., Respiratory function will remain adequate., Patient/ family verbilizes understanding of procedure., Procedure tolerated without complication., Recovers from procedure without complications.. 13:06:03 Informed consent obtained and on chart 13:: Arrival Date: 10/25/2019 12:30:00 PM 13:22:40 Admit Source: Other 13:23:51 Patient Height : 28.35 inches 13:23:58 Patient Weight : 145 lbs 13:24:10 Insurance Payor : Medicare 13:24:37 Patient received from Pre/Post Procedure Room to [facility] 2 Alert and oriented. Tansferred to table in Supine position. 13:24:38 Warm blankets applied, and zohaib hugger turned on for patient comfort. 13:24:39 Correct patient and procedure confirmed by team. 13:24:39 ECG and BP/O2 sat monitors applied to patient. 13:31:26 Vital chart was started 13:31:34 0.9% NaCl 100 ml/hr I.V. was administered by Lea Valladares RN; used for procedure; Verbal order read back and verified. 13:31:41 Oxygen 2 l/min etCO2 Nasal cannula was administered by Lea Valladares RN; used for procedure; Verbal order read back and verified. 13:31:48 Lidocaine 2% 20ml vial added to field was administered by Dawson Vann MD; for local anesthetic; Verbal order read back and verified. 13:31:52 Heparin Flush Bag (1000units/500ml NS) 2 bags added to field was administered by Dawson Vann MD; used for procedure; Verbal order read back and verified. 13:33:34 Baseline sample Acquired. 13:33:37 Rhythm: sinus rhythm 13:33:39 Full Disclosure recording started 13:33:43 H&P Date Dictated: 10/25/2019 Within 30 days and on chart., H&P Addendum completed by physician on day of procedure. (MUST COMPLETE FOR ALL OUTPATIENTS). 13:33:44 Pre-procedure instructions explained to patient. 13:33:45 Pre-op teaching completed and patient verbalized understanding. 13:33:46 Family in patients room. 13:33:47 Patient NPO since Midnight. 13:33:49 Is the patient allergic to Iodine/contrast media? No. 13:33:50 Was the patient premedicated? Yes 13:33:51 Is patient on blood thinner?Yes 13:33:54 ACC The patient was administered the following blood thiners within the last 24 hours: ACCPlavix 13:33:56 Patient diabetic? Yes. 13:33:57 If diabetic: On Metformin? Yes 13:34:00 If on Metformin: Last Dose? 10/24/2019 13:34:04 Previous problem with sedation/anesthesia? No ? 13:34:06 Snore? Yes 13:34:08 Sleep apnea? No 13:34:08 Deviated septum? No 13:34:09 Opens mouth fully? Yes 13:34:10 Sticks out tongue? Yes 13:34:18 Airway obstruction? Yes ASBESTOSIS 13:34:20 Dentures? No ? 13:34:25 Pre procedure: right dorsailis pedis pulse 2+ Normal; easily identifiable; not easily obliterated 13:34:27 Pre procedure: left dorsailis pedis pulse 2+ Normal; easily identifiable; not easily obliterated 13:34:40 IV patent on arrival in left forearm with 0.9% NaCl at [facility]. 13:34:43 Lab results completed and on chart. 13:36:07 Risk of Mortality: 3.6 13:36:11 Risk of blood transfusion: 23.2 13:36:15 Risk of PASCUAL: 12.4 13:36:21 Right groin area was prepped with chlora-prep and draped in sterile fashion 13:36:22 Alarms reviewed by RVerónica N. 13:36:23 Sharps counted by scrub and verified by R.N. 13:50:50 Physician arrived 13:50:50 --------ALL STOP TIME OUT------ 13:50:51 Final Timeout: patient, procedure, and site verified with staff and physician. All members of the team are in agreement. 13:50:53 Right groin site verified by team. 13:50:56 Fire Safety Assessment: A--An alcohol-based skin anteseptic being used preoperatively., C--Open oxygen or nitrous oxide is being used., D--An ESU, laser, or fiber-optic light is being used. 13:51:00 Physical assessment completed. ASA score P 2 - A patient with mild systemic disease as per Dawson Vann MD. 13:51:49 Versed 2 mg I.V. was administered by Lea Valladares RN; for sedation; Verbal order read back and verified. 13:51:52 3a) 45-59 Moderately reduced kidney function. 13:51:57 Fentanyl 50 mcg I.V. was administered by Lea Valladares RN; for sedation; Verbal order read back and verified. 13:52:35 Maximum allowable contrast dose (3.7 X eGFR X 0.75)133 ml. 13:52:39 Sedation plan: IV Moderate Sedation Medication:Versed, Fentanyl 13:52:45 Use device set Femoral Dx 13:52:46 ACIST Syringe (91901) opened to sterile field. 13:52:47 Bag Decanter (2002S) opened to sterile field. 13:52:47 Medline Cath Pack ([id number]) opened to sterile field. 13:52:49 ACIST Hand Control (81511) opened to sterile field. 13:52:49 ACIST Manifold (66266) opened to sterile field. 13:52:50 DIAGNOSTIC Multipack 5Fr catheter set (UD5794) opened to sterile field. 13:52:50 Tegaderm 4 x 4 (1626W) opened to sterile field. 13:52:51 SHEATH 5FR [place] (QRV003) opened to sterile field. 13:52:52 EMERALD Guide Wire (773-061) opened to sterile field. 13:53:41 EXOSEAL 5Fr (EX500) opened to sterile field. 13:57:47 Procedure started. 13:57:49 Fentanyl 50 mcg I.V. was administered by Lea Valladares RN; for sedation; Verbal order read back and verified. 13:57:50 Local anesthetic to right femoral artery with Lidocaine 2% by Dawson Vann MD.INITIAL ACCESS ONLY 13:57:55 Versed 2 mg I.V. was administered by Lea Valladares RN; for sedation; Verbal order read back and verified. 13:58:02 A 5 Fr sheath was inserted into the Right Femoral artery 13:59:44 A MULTIPACK Pigtail 5 Fr catheter was advanced over the wire and used for LV Angiography. 13:59:56 EF : 35 % 13:59:58 LV hemodynamics recorded. 14:00:01 LV gram done using KABA 14:00:05 Injector settings: Ml/sec: 5, Volume: 15, 14:00:09 Catheter removed. 14:00:22 A MULTIPACK JL 4.0 5Fr catheter was advanced over the wire and used for Left Coronary Angiography. 14:00:48 LCA angiography performed. 14:00:51 Injector settings: Ml/sec: 3, Volume: 6, 14:01:21 Catheter removed. 14:01:26 A MULTIPACK 3DRC 5Fr catheter was advanced over the wire and used for Right Coronary Angiography. 14:03:14 SHEATH 6FR [place] (KUM835) opened to sterile field. 14:03:15 INFLATOR Merit BasixCompak (PR5776) opened to sterile field. 14:03:15 CHOICE PT Extra Support 182cm wire ([id number]) opened to sterile field. 14:03:34 RCA angiography performed. 14:03:39 Injector settings: Ml/sec: 3, Volume: 6, 14:03:59 Catheter removed. 14:04:00 Proceeding to intervention. 14:05:22 6 Fr AR 2 guide catheter was inserted over the wire 14:05:48 FFR/IFR wire advanced. 14:06:05 Heparin Bolus 4000 units I.V. was administered by Lea Valladares RN; for anticoagulation; verified with Dr. Vann Verbal order read back and verified. 14:06:06 [place] Verrata Plus pressure wire (53391W) opened to sterile field. 14:06:13 Baseline FFR 1. 14:07:52 Wire advanced across lesion. 14:08:00 mRCA lesion measured at 0.89 with IFR 14:08:15 LASER ELCA 0.9 Rx atherectomy catheter (836245) opened to sterile field. 14:08:35 Laser pass to mRCA with Fluence of 80 and Rate of 40. 14:17:20 Place stent Inflation Number: 1 A FIDENCIO RX 4.0 x 22 stent ([id number]) was prepped and advanced across the Mid RCA 80. The stent was deployed at 21 BRONSON for 0:10 (min:sec) 0. 14:17:36 Inflation number: 2 The stent balloon was then re-inflated across the Mid RCA 0 to 13 BRONSON for 0:10 (min:sec) . 14:18:01 Inflation number: 3 The stent balloon was then re-inflated across the Mid RCA to 19 BRONSON for 0:10 (min:sec) . 14:18:39 Stent catheter was removed intact over wire. 14:18:39 Wire removed. 14:18:40 Guide catheter removed. 14:18:57 EXOSEAL 6Fr (EX600) opened to sterile field. 14:20:13 Sheath upsized to a 6 Fr Short. 14:20:13 Sheath removed intact; hemostasis achieved with Exoseal to the Right Femoral artery. 14:20:15 Procedure ended.(Physican Out) 14:21:04 Fluoroscopy time 05.10 minutes. 14:21:08 Fluoroscopy dose: 511 mGy 14:21:08 Flurop Dose total: 511 14:21:16 Dose Area Product 44237 mGy/cm. 14:21:22 Contrast amount:Isovue 300 50ml. 14:21:26 Maximum allowable dose exceeded? No. 14:21:26 Sharps counted by scrub and verified by R.N. 14:21:28 Insertion/operative site no bleeding no hematoma. 14:21:33 Post-op/insertion site Right Femoral artery dressed using a 4 x 4 and Tegaderm. 14:21:37 Post procedure rhythm: unchanged. 14:21:39 Estimated blood loss: 5 ml 14:21:41 Post procedure instruction explained to patient.Patient verbalizes understanding. 14:21:41 Patient needs reinforcement of post procedure teaching. 14:21:44 ACT drawn and resulted at 218 seconds. (normal therapeutic range 180-240 seconds). 14:22:05 Procedure type changed to Cath procedure, Diagnostic procedure, C, [facility] w/Coronaries, FFR/IVUS, FFR Initial, Sedation Charges, Moderate Sedation up to 30 minutes, PCI procedure, Coronary Stent, Coronary Stent Initial 14:22:06 Procedure and supply charges have been captured, reviewed, submitted and are correct. 14:22:10 Procedure Complication : No complications 14:22:13 Vital chart was stopped 14:22:14 [facility] Findings: MVD- PCI performed (see procedure note) 14:22:17 Operative report dictated upon procedure completion. 14:22:17 See physician's report for complete and final results. 14:22:19 Report given to Pre/Post Procedure Room. 14::22 Patient transfered to Pre/Post Procedure Room with Stretcher. 14:22:24 Procedure ended. 14::24 Full Disclosure recording stopped 14::32 ACC-PCI Only Patient was given prescriptions, or instructed by Dawson Vann MD to start/continue the following medications upon discharge: Plavix 14:22:34 End room use (Document Last) 14:24:05 End room use (Document Last) 14:24:44 End room use (Document Last) Intervention Summary Intervention Notes Time ActionType Lesion and Equipment Used Action# Pressure Duration Attributes 14:17:20 Place stent Mid RCA FIDENCIO RX 4.0 x 1 21 00:10 22 stent ([id number]) 14:17:36 Reinflate Mid RCA FIDENCIO RX 4.0 x 2 13 00:10 stent 22 stent balloon ([id number]) 14:18:01 Reinflate Mid RCA FIDENCIO RX 4.0 x 3 19 00:10 stent 22 stent balloon ([id number]) Device Usage Item Name Manufacture Quantity Catalog Number Hospital Part Current Minimal Lot# / Charge Number Stock Stock Serial# Code ACIST Syringe Acist 1 90070 065429 913786 242270 20 (65132) Medical Systems Inc Bag Decanter Microtek 1 590650 69325 350096 5 () Medical Inc. Medline Cath Medline 1 [id number] 424142 85959 872062 5 Pack ([id number]) ACIST Hand Acist 1 01757 225352 226307 053233 5 Control Medical (20626) Systems Inc ACIST Manifold Acist 1 04129 624426 349993 818049 5 (62368) Medical Systems Inc DIAGNOSTIC Cardinal 1 OE1685 675393 39989 963169 30 Multipack 5Fr Health catheter set (YN8167) Tegaderm 4 x 4 3M 1 1626W 552722 587504 001452 5 (1626W) SHEATH 5FR Terumo 1 JAV867 878334 165000 751701 5 [place] (XUA579) EMERALD Guide Cardinal 1 502-455 391211 518450 021101 5 Wire (502-455) Health EXOSEAL 5Fr Cardinal 1 EX500 157987 339815 830493 10 (EX500) Health MULTIPACK Cardinal 1 626098 5 Pigtail 5 Fr Health catheter MULTIPACK JL Cardinal 1 781709 5 4.0 5Fr Health catheter MULTIPACK 3DRC Cardinal 1 898232 5 5Fr catheter Health SHEATH 6FR Terumo 1 MNX954 388799 701325 681527 40 [place] (NLJ811) INFLATOR Merit Merit 1 YY7922 326032 892506 935785 [address] [address] [facility] (YQ1814) CHOICE PT [place] 1 [id number] 293300 698932 244382 5 Extra Support Scientific 182cm wire (2790189W2) [place]den 1 06177E 701361 397024345 905130 5 Verrata Plus pressure wire (17484X) LASER ELCA 0.9 [place] 1 110-004 144978 265422 234762 5 Rx atherectomy Healthcare catheter (212047) (084079) FIDENCIO RX 4.0 x Medtronic 1 [id number] 411086 0978709 851523 5 [id number] 22 stent ([id number]) EXOSEAL 6Fr Cardinal 1 EX600 824859 518337 518444 10 (EX600) Health Signature Audit [place] Stage Time Signature Unsigned Intra-Procedure 10/25/2019 Deanna Powell 2:24:05 PM RT(R) Intra-Procedure 10/25/2019 Lea Valladares 2:24:44 PM RN Intra-Procedure 10/25/2019 Dawson Vann 2:28:39 PM Signatures Performing Physician : Signature : Dawson Vann MD Date : Time : Monitor : Deanna Andre RT Signature : Date : Time : Nurse : Lea Blaine RN Signature : Date : Time : [address] [place] [address]
[~2019-10-25 10:31] MED LIST changes: +GLUCOPHAGE1000 MG PO; +SYNTHROID25 MCG PO
[2019-10-25] MEDS ORDERED: PIOGLITAZONE15 MG PO (11:06)
[2019-10-25] MEDS ORDERED: HYDROCODON-ACE1 EAC7 PO (11:07)
[2019-10-25] MEDS ORDERED: COZAAR50 MG PO (11:07)
[2019-10-25 11:26] VITALS: BP 198/89; Ht 182.9 cm; Wt 65.9 kg
[2019-10-25 11:41] LABS: BASOPHILS 0.5 % (0-2); HEMATOCRIT 34.2 % (42.0-54.0); HEMOGLOBIN 10.6 g/dL (13.5-17.5); MCH 26.6 pg (26.0-34.0); MCV 85.9 fL (80.0-100.0); MEAN PLATELET VOLUME 9.4 fL (7.4-10.4); MONOCYTES 8.2 % (2-11); NEUTROPHILS 73.3 % (40-80); PLATELET COUNT 231 10x3/uL (130-400); RBC 3.98 10x6/uL (4.20-6.10); RDW 15.1 % (11.5-14.5); WBC 4.2 10x3/uL (4.8-10.8)
[2019-10-25 11:55] LABS: CHOL - HDL RATIO 3.2 ratio (2.3-4.9); LDL-HDL RATIO 1.6 ratio (1.5-3.5)
[2019-10-25 12:34] LABS: ANION GAP 13.1 mmol/L (8-16); CALCIUM 9.5 mg/dL (8.5-10.1); CARBON DIOXIDE 24.8 mmol/L (21.0-32.0); CREATININE - SERUM 1.5 mg/dL (0.6-1.3); POTASSIUM - SERUM 3.9 mmol/L (3.5-5.1)
--- NOTE | 2019-10-25 14:40 | NUR ---
PT RECEIVED BACK TO ROOM 2 FROM [employer]PERATIONS MANAGER FOR RECOVERY. PT DROWSY BUT VERBALLY AROUSABLE. PT DENIES PAIN OR DISCOMFORT. R GROIN 2 6FR EXOCELE, DRESSING CDI NO S/S HEMATOMA. LEG PINK AND WARM, PEDAL PULSES PALPABLE. PT INSTRUCTED TO KEEP HEAD ON PILLOW AND LEG STRAIGHT, HE VERBALIZED UNDERSTANDING. IV PATENT INFUSING VIA R ARM PER ORDERS. PT PLACED ON CARDIAC MONITORS, HR NSR RATE 76, BP 186/80, RR 12, SAT 98 ON ROOM AIR. CARGIVERS AT BS, CALL LIGHT IN REACH
--- NOTE | 2019-10-25 14:45 | NUR ---
PT VOIDED 400 CC CLEAR YELLOW URINE VIA URINAL. R GROIN SOFT, NO S/S HEMATOMA. HR 78, BP 180/74, RR 12, SAT 96 ON ROOM AIR. CALL LIGHT IN REACH.
--- NOTE | 2019-10-25 15:30 | NUR ---
PT SLEEPING, VSS. R GROIN SOFT, DRESSING CDI NO S/S HEMATOMA. PEDAL PULSS PALPABLE. CALL LIGHT IN REACH.
--- NOTE | 2019-10-25 16:00 | NUR ---
PT SLEEPING, R GROIN SOFT NO S/S HEMATOMA. HR 78, BP 149/59, RR 14, SAT 96 ON ROOM AIR. CALL LIGHT IN REACH.
--- NOTE | 2019-10-25 16:55 | NUR ---
PT WANTING TO SIT UP, EXPLAINED THAT HE HAS TO LAY FLAT FOR THE FULL 3 HOURS. R GROIN SOFT, DRESSING REMAINS CDI NO S/S HEMATOMA. DT COLA GIVEN PER REQUEST. VSS. CALL LIGHT IN REACH
--- NOTE | 2019-10-25 17:17 | NUR ---
R GROIN SOFT, NO S/S HEMATOMA. HOB ELEVATED SLIGHTLY. SANDWICH TRAY AND DRINK SERVED. PT VOIDED 150CC CLEAR YELLOW URINE VIA URINAL. HR 90, BP 173/73, RR 14, SAT 99 ON ROOM AIR. PT DENIES PAIN OR OTHER NEEDS AT THIS TIME. CALL LIGHT IN REACH
--- NOTE | 2019-10-25 17:54 | NUR ---
R GROIN SOFT, DRESSING CDI NO S/S HEMATOMA NOTED. DISCHARGE INSTRUCTIONS REVIEWED W PT AND CAREGIVER, BOTH VERBALIZED UNDERSTANDING. PT TOLERATING PO FOOD AND FLUIDS. CALL LIGHT IN REACH
--- NOTE | 2019-10-25 18:09 | NUR ---
IV REMOVED W CATH INTACT, MONITORS REMOVED. GROIN REMAINS FREE OF BLEEDING OR HEMATOMA. PT UP TO DRESS FOR DISCHARGE W ASSIST FROM CAREGIVER.
--- NOTE | 2019-10-25 18:21 | NUR ---
PT DISCHARGED VIA WC TO CAREGIVER WAITING IN PRIVATE VEHICLE. PT HAD ALL BELONGINGS AND DISCHARGE INFORMATION
--- NOTE | 2019-10-28 11:54 | OP ---
PATIENT NAME: RENARD CABRERA MEDICAL RECORD: [id number] :41 LOCATION:D.CAT ADMISSION DATE: SURGEON: DRISS ANDERSON MD DATE OF OPERATION: 10/25/2019 PROCEDURES: 1. Laser atherectomy, PTCA and stent of RCA. 2. Left heart catheterization. 3. Selective coronary angiography. 4. Left ventriculogram. INDICATIONS: Unstable angina and coronary artery disease. PROCEDURE IN DETAIL: After informed consent was obtained and after detailed explanation of risks, benefits as well as alternative therapies, the patient elected to proceed with angiogram and angioplasty. The right femoral area was prepped and draped in normal sterile fashion. Right femoral artery was cannulated via modified Seldinger technique with placement of 6-Niuean sheath. All catheters exchanged through this sheath. FINDINGS: Left ventriculogram was performed in standard 30-degree KABA view, reveals global hypokinesis, ejection fraction 35%. SELECTIVE CORONARY ANGIOGRAPHY: 1. Left main is with no significant angiographic disease. 2. Left anterior descending is widely patent; however, the LAD diagonal has 90% stenosis, that is in-stent restenosis. 3. Left circumflex has 80% stenosis at the ostium. 4. The right coronary has 70+ percent stenosis in the mid vessel, that is in-stent restenosis and IFR was abnormal. PTCA AND STENT OF THE RCA: Laser atherectomy was performed. Multiple passes were made with a 0.9 catheter at 80/40. Stenting was undertaken with a 4.0 x 22 [place] stent. Result was 0% residual stenosis. OVERALL IMPRESSION: Successful PTCA and stent, laser atherectomy of the RCA going from 70+ percent initial stenosis to 0% residual. Plan for PTCA and stent of the LAD diagonal and left circumflex in the near future. TRANSINT:[id number] Voice Confirmation ID: [id number] DOCUMENT ID: [id number] DRISS ANDERSON MD at 1154 CC: [id number] DICTATION DATE: 10/25/19 1423 PBX MANAGER: 10/26/19 0002 DEP CLI 10/25/19 [place] [place] [address]
== END 2019-10-25 16:20 | disposition home or self-care (01) ==
LOC: D.CATH 10:31
PROVIDERS: ATTEND Internal Medicine Interventional Cardiology
DX: I25.110 Atherosclerotic heart disease of native coronary artery with unstable angina pectoris (principal); E78.5 Hyperlipidemia, unspecified; I10 Essential (primary) hypertension; J44.9 Chronic obstructive pulmonary disease, unspecified; E11.9 Type 2 diabetes mellitus without complications; R06.09 Other forms of dyspnea; K21.9 Gastro-esophageal reflux disease without esophagitis; Z79.84 Long term (current) use of oral hypoglycemic drugs
CPT/HCPCS: 93458; C9602

== ENCOUNTER 2019-10-30 08:36 | Outpatient (CLI) | payer MEDICARE, BC ==
[~2019-10-30] VITALS: Ht 182.9 cm; Wt 66.7 kg
--- NOTE | ~2019-10-30 | HEMODYNAMI ---
PATIENT:RENARD CABRERA MEDICAL RECORD: [id number] : 41 LOCATION:D.CAT ADMISSION DATE: 10/30/19 Generatedon:10/30/201911:20 Patient name: RENARD CABRERA Patient #: [id number] SSN: [id number] : 1945 Date of study: 10/30/2019 Page: Of Hemodynamic Procedure Report Patient Data Patient Demographics Procedure consent was obtained First Name: RENARD Gender: Male Last Name: RICK : 1945 [facility] Initial: C Age: 74 year(s) Patient #: [id number] Race: SSN: [id number] Additional ID: [id number] Contact details Address: [address] [place] [address] State: [place] City: [place] Zip code: [address] Past Medical History Allergies: No known allergies Admission Admission Data Admission Date: 10/30/2019 Admission Time: 8:36 Arrival Date: 10/30/2019 Arrival Time: 10:30 Admit Source: Other Insurance Payor: Medicare, Private health insurance [facility] #: [id number] Height (in.): 72.05 BSA: 1.87 (m2) Height (cm.): 183 BMI: 20.01 (kg/m2) Weight (lbs.): 147.71 Weight (kg.): 67 Lab Results Lab Result Date: 10/30/2019 Lab Result Time: 0:00 Biochemistry Name Units Result Min Max BUN mg/dl 16 --(---*)-- 7 18 Creatinine mg/dl 1.3 --(---*)-- 0.6 1.3 eGFR ml/min 57 *-(----)-- 90 120 NONAFRICAN CBC Name Units Result Min Max Hemoglobin g/dl 9.7 *-(----)-- 13.5 17.5 Procedure Procedure Types Cath Procedure Diagnostic Procedure [facility] w/Coronaries Sedation Charges Moderate Sedation up to 30 minutes PCI Procedure Coronary Stent Coronary Stent Initial Hemochron ACT Test Procedure Description Procedure Date Procedure Date: 10/30/2019 Procedure Start Time: 10:58 Procedure End Time: 11:15 Procedure Staff Name Function Dawson Vann MD Performing Physician Deanna Powell RT Monitor Kathy Espinoza RT Scrub Lizeth Li RN Nurse Procedure Data Cath Procedure Fluoroscopy Diagnostic fluoroscopy Total fluoroscopy Time: 3.2 time: 3.2 min min Diagnostic fluoroscopy Total fluoroscopy dose: 400 dose: 400 mGy mGy Contrast Material Contrast Material Type Amount (ml) Isovue 300 38 Entry Location Entry Primary Successful Side Size Upsize Upsize Entry Closure Succes sful Closure Location (Fr) 1 (Fr) 2 (Fr) Remarks Device Remarks Femoral Right 6 Fr Exoseal artery Short Estimated blood loss: 5 ml Procedure Complications No complications Procedure Medications Medication Administration Route Dosage Oxygen etCO2 Nasal cannula 2 l/min Lidocaine 2% added to field 20 Heparin Flush Bag added to field 2 bags (1000units/500ml NS) 0.9% NaCl I.V. 100 ml/hr Versed I.V. 1 mg Fentanyl I.V. 50 mcg Versed I.V. 1 mg Fentanyl I.V. 50 mcg Heparin Bolus I.V. 4000 units Versed I.V. 1 mg Hemodynamics Rest BSA: 1.87 (m2) HGB: 9.7 (g/dl) O2 Consumption: Estimated: 222.61 (ml/min) O2 Con sumption indexed: Estimated:119.04 (ml/min/m) Heart Rate: 81 (bpm) Snapshots Pre Cath Intra NCS Post Cath Vital Signs Time Heart Resp SPO2 etCO2 NIBP (mmHg) Rhythm Pain Sedation Rate (ipm) (%) (mmHg) Status Level (bpm) 10:46:28 145 22 100 24.2 193/96(149) NSR 0 (11) 10(A) , No pain 10:50:59 75 12 98 0 182/80(138) NSR 0 (11) 10(A) , No pain 10:55:25 71 12 98 0 175/78(125) NSR 0 (11) 9(A) , No pain 10:59:49 73 15 98 8.3 175/80(125) NSR 0 (11) 9(A) , No pain 11:04:16 76 14 99 18.1 173/72(127) NSR 0 (11) 9(A) , No pain 11:08:42 72 14 97 0 167/74(118) NSR 0 (11) 9(A) , No pain 11:13:06 76 12 99 27.9 151/70(115) NSR 0 (11) 10(A) , No pain Medications Time Medication Route Dose Verified Delivered Reason Notes Effectiveness by by 10:47:18 Oxygen etCO2 2 aDwson Stanley used for Nasal l/min Soo Li RN procedure cannula 10:47:25 Lidocaine 2% added 20ml Dawsonabdifatah Osman for local to vial Soo Vann MD anesthetic field 10:47:31 Heparin Flush added 2 Dawson Dawson used for Bag to bags Soo Vann MD procedure (1000units/500ml field NS) 10:47:40 0.9% NaCl I.V. 100 Dawson Stanley Per physician ml/hr Soo Li RN 10:47:51 Versed I.V. 1 mg Dawson Stanley for sedation Soo Li RN 10:47:56 Fentanyl I.V. 50 Dawson Stanley for sedation mcg Soo Li RN 10:55:06 Versed I.V. 1 mg Dawson Stanley for sedation Soo Li RN 11:03:14 Versed I.V. 1 mg Dawson Stanley for sedation Soo Li RN 11:03:17 Fentanyl I.V. 50 Dawson Stanley for sedation mcg Soo Li RN 11:07:35 Heparin Bolus I.V. 4000 Dawson Stanley for verif ied units Soo Li RN anticoagulation with dr vann Procedure Log Time Note 10:30:06 Lizeth Li RN sent for patient. Start room use. 10:39:39 Diagnostic Cath Status : Elective 10:40:03 Procedure Status Elective Heart Cath (OP). 10:40:12 Time tracking: Regular hours (M-F 7:00 - 5:00) 10:40:15 Plan of Care:Hemodynamics will remain stable., Cardiac rhythm will remain stable., Comfort level will be maintained., Respiratory function will remain adequate., Patient/ family verbilizes understanding of procedure., Procedure tolerated without complication., Recovers from procedure without complications.. 10:40:21 Patient received from Pre/Post Procedure Room to [facility] 2 Alert and oriented. Tansferred to table in Supine position. 10:40:22 Warm blankets applied, and zohaib hugger turned on for patient comfort. 10:40:23 Signed procedure consent form obtained from patient. 10:40:24 Correct patient and procedure confirmed by team. 10:40:25 ECG and BP/O2 sat monitors applied to patient. 10:41:32 Arrival Date: 10/30/2019 10:30:00 AM 10:42:05 Insurance Payor : Private health insurance, Medicare 10:42:08 Admit Source: Other 10:43:33 Patient Height : 72.05 inches 10:43:37 Patient Weight : 147.71 lbs 10:44:13 Lab Result : eGFR NONAFRICAN 57 ml/min 10:44:13 Lab Result : Hemoglobin 9.7 g/dl 10:44:13 Lab Result : BUN 16 mg/dl 10:44:13 Lab Result : Creatinine 1.3 mg/dl 10:44:13 Hemodynamic formulas in Rest were re-calculated based on hemoglobin value from 10/30/2019 12:00:00 AM 10:44:17 Vital chart was started 10:44:18 Baseline sample Acquired. 10:44:21 Rhythm: sinus rhythm 10:44:23 Full Disclosure recording started 10:44:25 H&P Date Dictated: 10/30/2019 Within 30 days and on chart.. 10:44:27 Pre-procedure instructions explained to patient. 10:44:27 Pre-op teaching completed and patient verbalized understanding. 10:44:29 Family in patients room. 10:44:32 Patient NPO since Midnight. 10:44:33 Is the patient allergic to Iodine/contrast media? No. 10:44:34 Was the patient premedicated? Yes 10:44:36 Is patient on blood thinner?Yes 10:44:39 ACC The patient was administered the following blood thiners within the last 24 hours: ACCPlavix 10:44:41 Patient diabetic? Yes. 10:44:57 If diabetic: On Metformin? Yes 10:45:00 If on Metformin: Last Dose? 10/28/2019 10:45:04 Previous problem with sedation/anesthesia? No ? 10:45:05 Snore? Yes 10:45:06 Sleep apnea? No 10:45:07 Deviated septum? No 10:45:07 Opens mouth fully? Yes 10:45:08 Sticks out tongue? Yes 10:45:11 Airway obstruction? Yes copd 10:45:13 Dentures? No ? 10:45:16 Pre procedure: right dorsailis pedis pulse 2+ Normal; easily identifiable; not easily obliterated 10:45:18 Pre procedure: left dorsailis pedis pulse 2+ Normal; easily identifiable; not easily obliterated 10:45:20 Patient pain scale 0/10 ?. 10:45:24 IV patent on arrival in left forearm with 0.9% NaCl at [facility]. 10:45:26 Lab results completed and on chart. 10:45:32 Stress Test: no; N/A ? 10:46:48 Risk of Mortality: 0.4 10:46:53 Risk of blood transfusion: 15.7 10:46:56 Risk of PASCUAL: 2.3 10:47:00 Right groin area was prepped with chlora-prep and draped in sterile fashion 10:47:01 Alarms reviewed by R. N. 10:47:01 Sharps counted by scrub and verified by R.N. 10:47:03 Physician arrived 10:47:03 --------ALL STOP TIME OUT------ 10:47:03 Final Timeout: patient, procedure, and site verified with staff and physician. All members of the team are in agreement. 10:47:05 Right groin site verified by team. 10:47:08 Fire Safety Assessment: A--An alcohol-based skin anteseptic being used preoperatively., C--Open oxygen or nitrous oxide is being used., D--An ESU, laser, or fiber-optic light is being used. 10:47:12 Physical assessment completed. ASA score P 2 - A patient with mild systemic disease as per Dawson Vann MD. 10:47:18 Oxygen 2 l/min etCO2 Nasal cannula was administered by Lizeth Li RN; used for procedure; Verbal order read back and verified. 10:47:21 3a) 45-59 Moderately reduced kidney function. 10:47:25 Lidocaine 2% 20ml vial added to field was administered by Dawson Vann MD; for local anesthetic; Verbal order read back and verified. 10:47:31 Heparin Flush Bag (1000units/500ml NS) 2 bags added to field was administered by Dawson Vann MD; used for procedure; Verbal order read back and verified. 10:47:40 0.9% NaCl 100 ml/hr I.V. was administered by Lizeth Li RN; Per physician; Verbal order read back and verified. 10:47:50 Maximum allowable contrast dose (3.7 X eGFR X 0.75)158 ml. 10:47:51 Versed 1 mg I.V. was administered by Lizeth Li RN; for sedation; Verbal order read back and verified. 10:47:54 Sedation plan: IV Moderate Sedation Medication:Versed, Fentanyl 10:47:56 Fentanyl 50 mcg I.V. was administered by Lizeth Li RN; for sedation; Verbal order read back and verified. 10:48:01 Use device set CATH PACK 10:48:02 ACIST Syringe (20640) opened to sterile field. 10:48:03 ACIST Hand Control (95226) opened to sterile field. 10:48:03 ACIST Manifold (55057) opened to sterile field. 10:48:04 Medline Cath Pack ([id number]) opened to sterile field. 10:48:04 Bag Decanter (2002S) opened to sterile field. 10:48:04 EMERALD Guide Wire (643-968) opened to sterile field. 10:48:32 SHEATH 6FR Addison (PBY142) opened to sterile field. 10:48:32 CHOICE PT Extra Support 182cm wire ([id number]) opened to sterile field. 10:48:33 INFLATOR Merit BasixCompak (TL2404) opened to sterile field. 10:55:06 Versed 1 mg I.V. was administered by Lizeth Li RN; for sedation; Verbal order read back and verified. 10:58:15 Procedure started. 10:58:20 Local anesthetic to right femoral artery with Lidocaine 2% by Dawson Vann MD.INITIAL ACCESS ONLY 11:03:14 Versed 1 mg I.V. was administered by Lizeth Li RN; for sedation; Verbal order read back and verified. 11:03:17 Fentanyl 50 mcg I.V. was administered by Lizeth Li RN; for sedation; Verbal order read back and verified. 11:06:42 A 6 Fr Short sheath was inserted into the Right Femoral artery 11:06:57 GUIDE 6FR XBLAD 3.5 catheter ([id number]) opened to sterile field. 11:07:23 6 Fr xblad 3.5 guide catheter was inserted over the wire 11:07:29 ACC Pre-intervention EDINSON Flow is 3. 11:07:35 Heparin Bolus 4000 units I.V. was administered by Lizeth Li RN; for anticoagulation; verified with dr vann Verbal order read back and verified. 11:07:40 Pre PCI Site: [place] pCirc has 90% stenosis. 11:08:25 choice pt wire advanced. 11:08:27 Wire advanced across lesion. 11:09:00 The FIDENCIO RX 2.75 x 08 stent ([id number]) was advanced then removed because of failure to cross lesion 11:10:08 Inflate balloon Inflation number: 1 A EUPHORA 2.5 x 10 Balloon ([id number]) was prepped and advanced across the Prox CX 90, then inflated to 7 BRONSON for 0:10 (min:sec) 0. 11:10:31 Inflation number: 2 The EUPHORA 2.5 x 10 Balloon ([id number]) was reinflated across the Prox CX 0, to 13 BRONSON for 0:10 (min:sec) . 11:10:52 Inflation number: 3 The EUPHORA 2.5 x 10 Balloon ([id number]) was reinflated across the Prox CX , to 17 BRONSON for 0:10 (min:sec) . 11:11:03 Balloon removed over the wire. 11:12:17 Place stent Inflation Number: 4 A FIDENCIO RX 2.75 x 08 stent ([id number]) was prepped and advanced across the Prox CX 90. The stent was deployed at 15 BRONSON for 0:10 (min:sec) 0. 11:13:53 Stent catheter was removed intact over wire. 11:13:53 Wire removed. 11:13:53 Guide catheter removed. 11:14:00 Sheath removed intact; hemostasis achieved with Exoseal to the Right Femoral artery. 11:14:02 Procedure ended.(Physican Out) 11:14:10 Fluoroscopy time 03.20 minutes. 11:14: Flurop Dose total: 400 11:14:13 Fluoroscopy dose: 400 mGy 11:14:19 Dose Area Product 23623 mGy/cm. 11:14:23 Contrast amount:Isovue 300 38ml. 11:14:24 Maximum allowable dose exceeded? No. 11:14:25 Sharps counted by scrub and verified by R.N. 11:14:29 Insertion/operative site no bleeding no hematoma. 11:14:35 Post Procedure Pulses reassessed and unchanged 11:14:38 Post procedure rhythm: unchanged. 11:14:40 Estimated blood loss: 5 ml 11:14:42 Post procedure instruction explained to patient.Patient verbalizes understanding. 11:14:43 Patient needs reinforcement of post procedure teaching. 11:15:06 Procedure type changed to Cath procedure, Diagnostic procedure, LHC, C w/Coronaries, Sedation Charges, Moderate Sedation up to 30 minutes, PCI procedure, Coronary Stent, Coronary Stent Initial, Hemochron ACT Test 11:15:06 Procedure and supply charges have been captured, reviewed, submitted and are correct. 11:15:10 Procedure Complication : No complications 11:15:14 Vital chart was stopped 11:15:19 [facility] Findings: MVD- PCI performed (see procedure note) 11:15:20 Operative report dictated upon procedure completion. 11:15:21 See physician's report for complete and final results. 11:15:23 Report given to Pre/Post Procedure Room. 11:15:28 Patient transfered to Pre/Post Procedure Room with Stretcher. 11:15:30 Procedure ended. 11:15:30 Full Disclosure recording stopped 11:15:38 ACC-PCI Only Patient was given prescriptions, or instructed by Dawson Vann MD to start/continue the following medications upon discharge: Plavix 11:15:40 End room use (Document Last) 11:17:42 EXOSEAL 6Fr (EX600) opened to sterile field. 11:18:02 EXOSEAL 6Fr (EX600) opened to sterile field. 11:18:55 ACT drawn and resulted at 255 seconds. (normal therapeutic range 180-240 seconds). Intervention Summary Intervention Notes Time ActionType Lesion and Equipment Used Action# Pressure Duration Attributes 11:09:00 Discard FIDENCIO RX 2.75 x Stent 08 stent ([id number]) 11:10:08 Inflate Prox CX EUPHORA 2.5 x 1 7 00:10 balloon 10 Balloon ([id number]) 11:10:31 Reinflate Prox CX EUPHORA 2.5 x 2 13 00:10 balloon 10 Balloon ([id number]) 11:10:52 Reinflate Prox CX EUPHORA 2.5 x 3 17 00:10 balloon 10 Balloon ([id number]) 11:12:17 Place stent Prox CX FIDENCIO RX 2.75 x 4 15 00:10 08 stent ([id number]) Device Usage Item Name Manufacture Quantity Catalog Number Hospital Part Current M inimal Lot# / Charge Number Stock Stock Serial# Code ACIST Syringe Acist 1 34997 503831 272493 358555 2 0 (75234) Medical Systems Inc ACIST Hand Acist 1 29847 856917 761653 767118 5 Control Medical (30666) Systems Inc ACIST Manifold Acist 1 45073 623531 914461 567580 5 (88213) Medical Systems Inc Medline Cath Medline 1 [id number] 327037 86865 380484 5 Pack ([id number]) Bag Decanter Microtek 1 908438 92101 994673 5 () Medical Inc. EMERALD Guide Cardinal 1 502-455 292102 217445 074530 5 Wire (502-455) Health SHEATH 6FR Terumo 1 DVV357 497726 316241 588238 4 0 Addison (RBE347) CHOICE PT [place] 1 [id number] 200951 904004 128779 5 Extra Support Scientific 182cm wire ([id number]) INFLATOR Merit Merit 1 JP9199 112552 997033 679558 1 5 [facility] Center[facility] The[employer] Medical (AP0714) GUIDE 6FR Cardinal 1 [id number] 559789 939857 779557 1 0 XBLAD 3.5 Health catheter ([id number]) FIDENCIO RX 2.75 x Medtronic 1 [id number] 616286 1947277 230996 5 [id number] 08 stent ([id number]) EUPHORA 2.5 x Medtronic 1 [id number] 632622 385559 881420 5 [id number] 10 Balloon ([id number]) EXOSEAL 6Fr Cardinal 2 EX600 663593 602905 910421 1 0 (EX600) Health Signature Audit [place] Stage Time Signature Unsigned Intra-Procedure 10/30/2019 Deanna Powell 11:18:02 AM RT(R) Intra-Procedure 10/30/2019 Lizeth Li RN 11:18:20 AM Intra-Procedure 10/30/2019 Dawson Vann 11:20:32 AM MD Signatures Performing Physician : Signature : Dawson Vann MD Date : Time : Monitor : Deanna Powell RT Signature : Date : Time : Nurse : Lizeth iL RN Signature : Date : Time : [facility] [address] [place] [address]
[~2019-10-30 08:36] MED LIST changes: +COZAAR50 MG PO; +HYDROCODON-ACE1 EAC7 PO; +PIOGLITAZONE15 MG PO
[2019-10-30] MEDS ORDERED: ROPINIROLE HCL0.5 MG PO (09:10)
[2019-10-30 09:22] VITALS: BP 199/87; Ht 182.9 cm; Wt 66.7 kg
[2019-10-30 09:53] LABS: BASOPHILS 0.5 % (0-2); EOSINOPHILS 1.5 % (0-7); HEMATOCRIT 32.1 % (42.0-54.0); HEMOGLOBIN 9.7 g/dL (13.5-17.5); LYMPHOCYTES 20.5 % (15-50); MCH 26.4 pg (26.0-34.0); MCHC 30.2 g/dL (31.0-37.0); MCV 87.2 fL (80.0-100.0); MEAN PLATELET VOLUME 9.6 fL (7.4-10.4); MONOCYTES 6.8 % (2-11); NEUTROPHILS 70.7 % (40-80); PLATELET COUNT 214 10x3/uL (130-400); RBC 3.68 10x6/uL (4.20-6.10); RDW 15.2 % (11.5-14.5); WBC 4.1 10x3/uL (4.8-10.8)
[2019-10-30 10:00] LABS: ANION GAP 9.7 mmol/L (8-16); CALCIUM 9.3 mg/dL (8.5-10.1); CARBON DIOXIDE 26.9 mmol/L (21.0-32.0); CREATININE - SERUM 1.3 mg/dL (0.6-1.3); POTASSIUM - SERUM 3.6 mmol/L (3.5-5.1)
--- NOTE | 2019-10-30 11:25 | NUR ---
REC TO ROOM FROM ANTHROPOLOGY INSTRUCTOR VIA STRETCHER. MONITORING INITIATED. NSR 75, BP 168/82, RR 12, SAT 98% RA. R GROIN W TEGADERM AND 4X4 CDI, SOFT, NO S/S BLEEDING OR HEMATOMA. PPP. INSTRUCTED KEEP HEAD ON PILLOW AND RLE STRAIGHT AND STILL.
[2019-10-30] MEDS ORDERED: ASPIRIN81 MG PO (11:50)
--- NOTE | 2019-10-30 12:05 | NUR ---
R GROIN CDI, SOFT. NO S/S BLEEDING OR HEMATOMA. CAREGIVER AT BEDSIDE.
--- NOTE | 2019-10-30 12:20 | NUR ---
R GROIN SOFT, NO S/S BLEEDING OR HEMATOMA.
--- NOTE | 2019-10-30 12:50 | NUR ---
R GROIN SOFT, NO S/S BLEEDING OR HEMATOMA. BP 157/58, NSR 72.
--- NOTE | 2019-10-30 13:21 | NUR ---
R GROIN SOFT, NO S/S BLEEDING OR HEMATOMA. BP 180/93, NSR 84. AWAKE AND VISITING W HIS CAREGIVER.
--- NOTE | 2019-10-30 13:47 | NUR ---
R GROIN SOFT, NO S/S BLEEDING OR HEMATOMA. VOIDED 300ML INTO URINAL. BP 183/88, NSR 73. ASKING TO SIT UP, INFORMED AT 2:15 WILL SIT HIM UP.
--- NOTE | 2019-10-30 14:15 | NUR ---
R GROIN SOFT, NO S/S BLEEDING OR HEMATOMA. PPP. RAISED HOB FOR PT COMFORT, PROVIDED COFFEE AND SANDWICH. CLONIDINE 0.1MG GIVEN FOR SYSTOLIC >200.
--- NOTE | 2019-10-30 14:50 | NUR ---
R GROIN SOFT, NO S/S BLEEDING OR HEMATOMA. HAD SANDWICH, NOW HAVING SECOND CUP OF COFFEE. CAREGIVER AT BEDSIDE. BP 183/86, COMIMG DOWN AFTER CLONIDINE.
--- NOTE | 2019-10-30 15:00 | NUR ---
R GROIN SOFT, NO S/S BLEEDING OR HEMATOMA. IV DC LFA. MONITORING DISCONTINUED. PT DRESSING WITH HELP OF CAREGIVER.
--- NOTE | 2019-10-30 15:17 | NUR ---
DISCHARGE INSTRUCTIONS REVIEWED W PT AND CAREGIVER. VERBALIZED UNDERSTANDING. PT DC HOME VIA WHEELCHAIR TO PRIVATE VEHICLE W CAREGIVER. PT HAS ALL BELONGINGS.
--- NOTE | 2019-10-31 16:48 | OP ---
PATIENT NAME: RENARD CABRERA MEDICAL RECORD: [id number] :41 LOCATION:D.CAT ADMISSION DATE: SURGEON: DRISS ANDERSON MD DATE OF OPERATION: 10/30/2019 PROCEDURES: 1. PTCA stent left circumflex. 2. Selective coronary angiography. INDICATION: Angina and coronary artery disease. PROCEDURE IN DETAIL: After informed consent was obtained and after a detailed description of the risks, benefits as well as alternative therapies, the patient elected to proceed with angiogram and angioplasty. The right femoral area was prepped and draped in normal sterile fashion. Right femoral artery was cannulated via modified Seldinger technique with placement of 6-Spanish sheath. All catheters exchanged through this sheath. FINDINGS: The left circumflex has 80% to 90% stenosis at the ostium. This was addressed with a 2.75 x 8 mm Lorenzo. Result was 0% residual stenosis. OVERALL IMPRESSION: Successful percutaneous transluminal coronary angioplasty stent of the left circumflex going from 80% to 90% initial stenosis at the ostium to 0% residual. TRANSINT:[id number] Voice Confirmation ID: [id number] DOCUMENT ID: [id number] DRISS ANDERSON MD at 1648 CC: [id number] DICTATION DATE: 10/30/19 1117 MINE SAFETY ENGINEER: 10/30/19 1453 DEP CLI 10/30/19 [id number] [place] [address]
== END 2019-10-30 15:15 | disposition home or self-care (01) ==
LOC: D.CATH 08:36
PROVIDERS: ATTEND Internal Medicine Interventional Cardiology
DX: I25.119 Atherosclerotic heart disease of native coronary artery with unspecified angina pectoris (principal); E78.5 Hyperlipidemia, unspecified; I10 Essential (primary) hypertension; J44.9 Chronic obstructive pulmonary disease, unspecified; E11.9 Type 2 diabetes mellitus without complications; Z79.84 Long term (current) use of oral hypoglycemic drugs; K21.9 Gastro-esophageal reflux disease without esophagitis; R06.09 Other forms of dyspnea